=== PATIENT | male | born 1950 | race Caucasian/White ===

== ENCOUNTER → 2023-11-02 12:24 | Outpatient (ROUT) | payer OTHER, MEDICARE, MEDICAID, SELFPAY ==
[2023-11-02 13:18] LABS: Alanine Aminotransferase 11 IU/L (<50); Albumin 3.4 g/dL (3.5-5.0); Albumin Globulin Ratio 1.2 (1.0-2.8); Alkaline Phosphatase 126 U/L (38-126); Aspartate Aminotransferase 30 IU/L (17-59); BUN Creatinine Ratio 36.4 (6-22); Bilirubin Total 2.6 mg/dL (0.2-1.3); Blood Urea Nitrogen 24 mg/dL (9-20); Calcium 9.2 mg/dL (8.4-10.2); Carbon Dioxide 29 mmol/L (22-32); Chloride 100 mmol/L (98-107); Estimated Glomerular Filt Rate > 60 mL/min (>60); Globulin 2.8 g/dL (1.7-4.1); Glucose 85 mg/dL (80-110); HEMOLYSIS < 15 (0-50); Potassium 3.8 mmol/L (3.4-5.1); Sodium 135 mmol/L (137-145); Total Protein 6.2 g/dL (6.3-8.2)
[2023-11-02 13:30] LABS: Digoxin 0.5 ng/mL (0.8-2.0)
== END ==
PROVIDERS: Visit Provider Family Medicine
DX: I50.22 Chronic systolic (congestive) heart failure (principal)
CPT/HCPCS: 80053; 80162

== ENCOUNTER → 2024-06-29 06:21 | Outpatient (ROUT) | payer OTHER, MEDICARE, MEDICAID, SELFPAY ==
[2024-06-29 07:25] LABS: Add Manual Diff / Slide Review NO; Basophils Absolute Auto 100 /uL (0-100); Basophils Percent Auto 1.9 % (0-2); Eosinophils Absolute Auto 100 /uL (0-450); Eosinophils Percent Auto 1.5 % (2-4); Hematocrit 38.4 % (41-53); Hemoglobin 12.6 g/dL (13.5-17.5); Lymphocytes Absolute Auto 500 /uL (1100-4500); Lymphocytes Percent Auto 9.3 % (25-40); Mean Corpuscular Hemoglobin 33.1 PG (26-34); Mean Corpuscular Volume 100.5 fL (80-100); Monocytes Absolute Auto 500 /uL (0-900); Neutrophils Absolute Auto 3700 /uL (1500-7000); Neutrophils Percent Auto 76.3 % (50-75); Platelet Count 159 X10^3/uL (150-400); Red Blood Cell Count 3.82 X10^6/uL (4.5-5.9); White Blood Cell Count 4.8 X10^3/uL (4.5-11.0)
[2024-06-29 07:34] LABS: Alanine Aminotransferase 13 IU/L (<50); Albumin 3.6 g/dL (3.5-5.0); Albumin Globulin Ratio 1.5 (1.0-2.8); Alkaline Phosphatase 99 U/L (38-126); Aspartate Aminotransferase 41 IU/L (17-59); BUN Creatinine Ratio 24.1 (6-22); Blood Urea Nitrogen 21 mg/dL (9-20); Calcium 8.7 mg/dL (8.4-10.2); Carbon Dioxide 27 mmol/L (22-32); Chloride 101 mmol/L (98-107); Estimated Glomerular Filt Rate > 60 mL/min (>60); Globulin 2.4 g/dL (1.7-4.1); Glucose 98 mg/dL (80-110); HEMOLYSIS < 15 (0-50); Potassium 4.2 mmol/L (3.4-5.1); Sodium 134 mmol/L (137-145)
[2024-06-29 08:05] LABS: Thyroid Stimulating Hormone 14.7 uIU/mL (0.47-4.68)
== END ==
PROVIDERS: Visit Provider Nurse Practitioner Family
DX: D64.9 Anemia, unspecified (principal); I50.30 Unspecified diastolic (congestive) heart failure; R60.9 Edema, unspecified; R09.02 Hypoxemia
CPT/HCPCS: 36415; 80053; 84443; 85025

== ENCOUNTER 2024-07-04 09:45 | Emergency (ER) | payer MEDICARE, MEDICAID, SELFPAY ==
[2024-07-04] VITALS (21 sets, daily range): BP systolic 92–116; BP diastolic 61–85; PULSE 80–114; RESP 11–38; TEMP 36.5; O2SAT 87–98; BMI 25.8
--- NOTE | 2024-07-04 10:21 | EKG_ITS ---
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
[2024-07-04 10:29] LABS: Add Manual Diff / Slide Review NO; Basophils Absolute Auto 100 /uL (0-100); Basophils Percent Auto 1.2 % (0-2); Eosinophils Absolute Auto 200 /uL (0-450); Eosinophils Percent Auto 2.8 % (2-4); Hematocrit 41.1 % (41-53); Hemoglobin 13.8 g/dL (13.5-17.5); Lymphocytes Absolute Auto 400 /uL (1100-4500); Mean Corpuscular HGB Conc 33.6 % (30-36); Mean Corpuscular Hemoglobin 33.3 PG (26-34); Mean Corpuscular Volume 98.9 fL (80-100); Monocytes Absolute Auto 600 /uL (0-900); Monocytes Percent Auto 10.1 % (3-14); Neutrophils Absolute Auto 4300 /uL (1500-7000); Neutrophils Percent Auto 77.9 % (50-75); Platelet Count 170 X10^3/uL (150-400); Red Blood Cell Count 4.15 X10^6/uL (4.5-5.9); Red Cell Distribution Width 18.1 % (11.6-14.8); White Blood Cell Count 5.6 X10^3/uL (4.5-11.0)
[2024-07-04 10:55] LABS: Alanine Aminotransferase 14 IU/L (<50); Albumin Globulin Ratio 1.3 (1.0-2.8); Alkaline Phosphatase 115 U/L (38-126); Aspartate Aminotransferase 51 IU/L (17-59); BUN Creatinine Ratio 26.4 (6-22); Bilirubin Total 3.9 mg/dL (0.2-1.3); Blood Urea Nitrogen 24 mg/dL (9-20); Calcium 8.9 mg/dL (8.4-10.2); Carbon Dioxide 24 mmol/L (22-32); Chloride 102 mmol/L (98-107); Estimated Glomerular Filt Rate > 60 mL/min (>60); Glucose 91 mg/dL (80-110); HEMOLYSIS 62 (0-50); Lipase 105 U/L (23-300); Potassium 4.5 mmol/L (3.4-5.1); Sodium 135 mmol/L (137-145)
--- NOTE | 2024-07-04 11:26 | DI.CT.S_ITS ---
PROCEDURE: CT ABDOMEN PELVIS W CON INDICATIONS: abd pain TECHNIQUE: After the administration of intravenous contrast, axial sections acquired from the lung bases to the pubic symphysis. Coronal and sagittal reformats were performed. For radiation dose reduction, the following was used: automated exposure control, adjustment of mA and/or kV according to patient size. COMPARISON: None. FINDINGS: Image quality: Suboptimal due to motion artifact. Lower Chest: Marked cardiomegaly. Small pleural effusions. Reflux of contrast into the IVC. ABDOMEN: Liver: No solid mass. Gallbladder: No radiopaque stones. Decompressed with a thickened wall. Biliary ducts: No biliary dilation. Pancreas: No ductal dilation. Spleen: Size is within normal limits. Adrenal Glands: No adrenal nodules. Kidneys and Ureters: No hydronephrosis. No solid mass. No complex renal cystic lesion which requires follow up. Stomach and Bowel: Normal colonic caliber, without significant wall thickening. Peritoneum: No abnormal intraperitoneal fluid. No free air. Large volume ascites. Ventral Wall: No significant ventral hernia. Anasarca. Abdominal Nodes: No retroperitoneal or mesenteric adenopathy by size criteria. Vessels: Aorta and inferior vena cava are normal in size. PELVIS: Pelvic Organs: Unremarkable. Bladder: No bladder wall thickening, accounting for underdistention. Pelvic Nodes: No enlarged lymph nodes. Miscellaneous: No inguinal hernias are seen. Bones: No aggressive osseous abnormality. IMPRESSION: Large volume ascites. This is probably third-spacing fluids as anasarca and small pleural effusions are present. Marked cardiomegaly. Dictated by: Andrew Mitchell M.D. on 07/04/2024 at 12:44 Approved by: Andrew Mitchell M.D. on 07/04/2024 at 12:47
--- NOTE | 2024-07-04 11:26 | ED.ABDPAIN ---
HPI - Abdominal Pain General Chief Complaint: Abdominal Pain Stated Complaint: abd pain Time Seen by Provider: 07/04/24 11:26 Source: patient and EMS Mode of arrival: EMS History of Present Illness HPI narrative: 73-year-old male current resident at [facility] complains of weeks duration generalized abdominal pain, hard stools in the past, does not believe he has any known cirrhosis or fluid in the belly, no drainage procedures of the belly, increasing distention over the last couple of days noted, passing gas, last bowel movement couple of days ago. Increasing abdominal pain. No fevers or chills. No fall or injury. He denies pain with urination or frequency of urination, did not have difficulty initiating urination, strong stream. He denies flank pain. He denies cough shortness of breath. He has had no nausea or vomiting, does not report any black or red stools. Related Data Allergies Allergy/AdvReac Type Severity Reaction Status Date / Time No Known Drug Allergies Allergy Verified 07/04/24 09:57 Review of Systems Review of Systems Narrative: see HPI Patient History Social History Smoking Status: Former smoker Smoking Status: Former smoker alcohol intake frequency: other Substance Use Type: does not use Exam Narrative Exam Narrative: GENERAL: Well-developed patient, in mild distress. HEAD: Atraumatic. Normocephalic. EYES: Pupils equal round and reactive. Extraocular motions intact. No scleral icterus. No injection or drainage. ENT: Nose without bleeding, purulent drainage. Throat without erythema, tonsillar hypertrophy or exudate. Airway patent. NECK: Trachea midline. Non tender CARDIOVASCULAR: Regular rate and rhythm without murmurs, gallops, or rubs. RESPIRATORY: Clear to auscultation. Breath sounds equal bilaterally. No wheezes, rales, or rhonchi. GASTROINTESTINAL: Abdomen distended, with umbilical reducible hernia that is not particularly tender when pushed back down, is quickly recurrent, no specific central tympany, suspected ascites. No caput medusae like changes to the skin. No obvious inguinal hernia. Bowel tones diminished, but no rushes or tinkles. No guarding or rebound EXTREMITIES: No edema or joint tenderness. BACK: Nontender without deformity or crepitance. No flank tenderness. NEURO: AOx3. Grossly nonfocal motor exam SKIN: No rash or erythema of visible areas Initial Vital Signs Initial Vital Signs: Vital Signs Temperature 97.7 F 07/04/24 09:57 Pulse Rate 110 H 07/04/24 09:57 Respiratory Rate 20 07/04/24 09:57 Blood Pressure 107/79 07/04/24 09:57 Pulse Oximetry 93 07/04/24 09:57 Oxygen Delivery Method Room Air 07/04/24 09:57 Course Orders Ordered: ED Orders 07/04/24 11:26 CT abdomen pelvis w con Stat 07/04/24 13:20 Urine Culture Stat Urine Microscopic Stat 07/04/24 14:52 US paracentesis Stat 07/04/24 16:06 Body Fluid Culture Stat Cell Count w Diff Body Fluid Stat [facility] Albumin, Body Fluid Stat Discontinued Medications Albumin Human (Albuminar) 25 gm in 100 mls @ 60 mls/hr IV NOW ONE Stop: 07/04/24 16:30 Last Infusion: 07/04/24 17:11 Dose: Infused Documented By: Admin: 07/04/24 15:29 Dose: 60 mls/hr Documented By: YOAN Ondansetron HCl (Ondansetron 4 Mg/2 Ml Inj) 4 mg IV NOW PRN PRN Reason: Nausea And Vomiting Vital Signs Vital signs: Vital Signs - 8 hr 07/04/24 12:30 07/04/24 12:30 07/04/24 13:00 Pulse Rate 89 Respiratory Rate 12 Blood Pressure 105/70 110/77 Pulse Oximetry 96 07/04/24 13:00 07/04/24 13:30 07/04/24 13:30 Pulse Rate 102 H 110 H Respiratory Rate 33 H 31 H Blood Pressure 104/78 Pulse Oximetry 94 98 07/04/24 14:00 07/04/24 14:00 07/04/24 14:30 Pulse Rate 96 H Respiratory Rate 28 H Blood Pressure 105/78 116/72 Pulse Oximetry 92 07/04/24 14:30 07/04/24 15:00 07/04/24 15:00 Pulse Rate 82 107 H Respiratory Rate 16 33 H Blood Pressure 106/73 Pulse Oximetry 95 94 07/04/24 15:30 07/04/24 15:30 07/04/24 16:00 Pulse Rate 104 H 92 H Respiratory Rate 29 H 27 H Blood Pressure 116/75 Pulse Oximetry 87 L 07/04/24 16:00 07/04/24 16:30 07/04/24 17:00 Pulse Rate Respiratory Rate Blood Pressure 100/70 106/78 106/75 Pulse Oximetry 07/04/24 17:00 07/04/24 17:30 07/04/24 17:30 Pulse Rate 100 H 83 Respiratory Rate 38 H 15 Blood Pressure 108/62 Pulse Oximetry 96 95 07/04/24 18:00 07/04/24 18:00 07/04/24 18:32 Pulse Rate 80 Respiratory Rate 19 Blood Pressure 93/61 93/69 Pulse Oximetry 94 07/04/24 18:32 07/04/24 19:00 07/04/24 19:00 Pulse Rate 105 H 107 H Respiratory Rate 22 30 H Blood Pressure 111/73 Pulse Oximetry 93 91 MDM - Abdominal Pain Lab Data Attestation: I reviewed the patient's lab results. 07/04/24 10:10 07/04/24 10:10 Labs: Lab Results 07/04/24 07/04/24 07/04/24 Range/Units 10:10 13:20 16:06 WBC 5.6 (4.5-11.0) X10^3/uL RBC 4.15 L (4.5-5.9) X10^6/uL Hgb 13.8 (13.5-17.5) g/dL Hct 41.1 (41-53) % MCV 98.9 (80-100) fL MCH 33.3 (26-34) PG MCHC 33.6 (30-36) % RDW 18.1 H (11.6-14.8) % Plt Count 170 (150-400) X10^3/uL Neut % (Auto) 77.9 H (50-75) % Lymph % (Auto) 8.0 L (25-40) % [place] % (Auto) 10.1 (3-14) % Eos % (Auto) 2.8 (2-4) % Baso % (Auto) 1.2 (0-2) % Neut # (Auto) 4300 (7643-5445) /uL Lymph # (Auto) 400 L (6645-4545) /uL [place] # (Auto) 600 (0-900) /uL Eos # (Auto) 200 (0-450) /uL Baso # (Auto) 100 (0-100) /uL PT 15.5 H (9.4-12.5) SECONDS INR 1.3 (0.9-1.3) Sodium 135 L (137-145) mmol/L Potassium 4.5 (3.4-5.1) mmol/L Chloride 102 (98-107) mmol/L Carbon Dioxide 24 (22-32) mmol/L BUN 24 H (9-20) mg/dL Creatinine 0.91 (0.66-1.25) mg/dL Estimated GFR > 60 (>60) mL/min BUN/Creatinine Ratio 26.4 H (6-22) Glucose 91 (80-110) mg/dL Calcium 8.9 (8.4-10.2) mg/dL Total Bilirubin 3.9 H (0.2-1.3) mg/dL AST 51 (17-59) IU/L ALT 14 (<50) IU/L Alkaline Phosphatase 115 (38-126) U/L Total Protein 7.0 (6.3-8.2) g/dL Albumin 4.0 (3.5-5.0) g/dL Globulin 3.0 (1.7-4.1) g/dL Albumin/Globulin Ratio 1.3 (1.0-2.8) Lipase 105 (23-300) U/L Urine RBC None seen (0-5/HPF) Urine WBC 1-5/hpf (0-5/HPF) Ur Squamous Epith Cells None seen (0-5/HPF) Urine Bacteria Many (>30) H (None) Ur Culture Indicated? Cult not indicated Vol Urine Centrifuged 10ml (spun) Fluid Color Yellow Fluid Appearance Hazy Fluid RBC 654 /uL Fld Tot Nucleated Cell 235 /uL Fluid Neutrophils % 11 % Fluid Lymphocytes % 26 % Fluid Basophils % 1 % Fluid Meso/Macro/Barrow % 62 % Body Fluid Clot No clots present Point of care testing: Urine Dip Bedside Urine Glucose Negative Bedside Urine Bilirubin - Negative Bedside Urine Ketone - Negative Urine Specific [place] 1.025 Bedside Urine Occult Blood ++ Bedside Urine pH 6.0 Bedside Urine Protein - Negative Bedside Urine Urobilinogen - Negative Bedside Urine Nitrite - Negative Bedside Urine Leukocytes - Negative Esterase ECG Data Attestation: I personally reviewed and interpreted this ECG as follows: Interpretation: Atrial fibrillation with ventricular rate 99, no obvious ST segment elevation or depression. Low voltage noted. QRS 112, QTC 469. MDM Narrative Medical decision making narrative: 73-year-old male resident of nearby assisted care facility with abdominal pain for a number of weeks, history of constipation, increasing abdominal distention, quite tense on exam, without obvious fluid wave, it has not aware of any previous diagnosis of cirrhosis/ascites, no prior paracentesis procedures, has umbilical hernia that is reducible not tender when reduced but is persistent/recurrent. Labs Show adequate renal function. CT abdomen and pelvis imaging with IV contrast requested. CT abdomen and pelvis shows large volume ascites. No acute changes. No mention of cirrhosis liver parenchyma. We will requests tap, apparently this is a new diagnosis. Discussed with Interventional Radiology, they can do large volume tap. We will follow with albumin infusion. Paracentesis fluid requested for studies: Cell count, gram stain, culture, albumin, cytology, AFB and culture, fungal culture. Patient had 4600 cc drained by Interventional Radiology peritoneal fluid, nonbloody nonpurulent appearing. Studies show white blood cell count 235 with 11% neutrophils, 4 ANC 26. Not consistent with SBP. Red blood cells 654 noted. Fluid albumin requested and pending. Peritoneal fluid Gram stain, bacterial culture, fungal culture, AFB culture, cytology studies are pending. IV albumin 25 g infusion post large volume paracentesis infusing. We will contact hospitalist regarding admission. Patient reported that he did not want to be admitted, he has atrial fibrillation known with some persisting tachycardia 110-120 range, is aware of this. We discussed the fluid chest that can happen after large volume paracentesis, electrolyte abnormalities, kidney function issues. Advised he be admitted. He persisted in his desire to be discharged, against medical advice. He expressed understanding of risks refusal that can include morbidity, fall, injury, loss for the last now, even . He persisted in his wish to be discharged against medical advice, advised to follow up with his provider through [facility] next door. He was informed he could return at any time. Critical Care Time Critical Care Time Critical Care Time: Yes Total Critical Care Time: 31 Attestation: The high probability of a clinically significant, sudden or life threatening deterioration of the [gastrointestinal, genitourinary, abdominopelvic] system(s) required my full and direct attention, intervention and personal management. The aggregate critical care time was [31] minutes. This time is in addition to time spent performing reported procedures but includes the following: [x] Data Review and interpretation [x] Patient assessment and monitoring of vital signs [x] Documentation [x Medication orders and management Discharge Plan Departure Patient Disposition: Left Against Medical Advice Clinical Impression: Abdominal pain, Ascites, Left against medical advice, Atrial fibrillation with RVR Activity Restrictions/Additional Instructions: You had abdominal distention over a number of weeks, increased since yesterday, with umbilical hernia that was easy to push back, did not seem to be tender, concern for possible ascites fluid, though you reported you had never had ascites fluid drained from your belly before. CT abdomen and pelvis imaging did not show any cirrhosis of the liver, but did show large volume of ascites fluid in the abdominopelvic cavity. You gave consent for large volume paracentesis, drainage of 4600-mL nonbloody specimen, which was performed with ultrasound guidance by the interventional radiologist on-call. Infusion of IV albumin was done after the large volume paracentesis to help prevent too much fluid shifting. Postprocedure you felt better, weaned off of oxygen. Studies did not suggest infection. Culture pending at this time, as well as cytology to look for cancers reasons for fluid in the belly. Atrial fibrillation known, with rapid ventricular response rate. You were advised to be admitted for further observation and to repeat labs in the morning to check your electrolytes and renal function after such a large fluid changes in shifts, as well as persisting fast heart rate due to your atrial fibrillation. You did not want to follow this advice in elected to leave now against medical advice. You were informed of the risks of such decision that result in missed infection, electrolyte disturbance, kidney failure changes, dizziness, falls, injury, even . You left the emergency department against medical advice. You are advised to seek care with your regular provider through [facility], contact them tomorrow morning. You are welcome and encouraged to return to this emergency department if he should feel worse. Continue taking your chronic medications for now. Stand Alone Forms: Patient Portal/API, Against Medical Advice
[2024-07-04 14:43] LABS: Bacteria Urine Many (>30); Culture Indicated Urine Cult Not Indicated; RBC Urine None Seen (0-5/HPF); Squamous Epithelial Cell Urine None Seen (0-5/HPF); Urine Volume 10mL (spun); WBC Urine 1-5/HPF (0-5/HPF)
--- NOTE | 2024-07-04 14:50 | PATH_ITS ---
Note [facility] Accession Number: [id number] TESTS RESULT FLAG UNITS REF RANGE LAB Clinician Provided Cytology Information No. of containers..01 Other (Miscellaneous) Source: ASCITES FLUID DIAGNOSIS: ASCITES FLUID NEGATIVE FOR MALIGNANT CELLS. THIS INTERPRETATION INCLUDES EVALUATION OF A CELL BLOCK. Pathologist ICD10: R18.8 Signed out by: Flavio Kerr MD, PhD, Pathologist NPI- [id number] Performed by: Jasiel Barron, Professor Of Physics ([facility]) Gross description: 70 CC, YELLOW, CLOUDY RECEIVED: FRESH IN BLUE CAP CONTAINER.VO /VDU 07/05/2024 0651 Local FLAG LEGEND: L-Low Normal,H-High Normal,LL-Alert Low,HH-Alert High <-Panic Low,>-Panic High,A-Abnormal,AA-Critical Abnormal Performed at: 01 =Z [facility] [address], [place] [address] Agus Rubio MD, Performed at: 01 [facility] [address], [place], [place] [id number] MD Agus Rubio MD Phone: [phone]
--- NOTE | 2024-07-04 14:52 | DI.US.S_ITS ---
PROCEDURE: US PARACENTESIS INDICATIONS: ascites TECHNIQUE: The indications, alternatives, benefits, risks, and complications of the procedure were explained to the patient. Written informed consent was obtained and placed in the chart. The abdomen and pelvis were examined sonographically, and an appropriate site was chosen for paracentesis. The skin was prepared and draped in the usual sterile fashion, and 1% lidocaine was infiltrated from the skin down through the peritoneal surface. A 19-gauge catheter-covered needle was then introduced into the peritoneal space, the catheter was advanced and the needle was withdrawn, and thereafter peritoneal fluid was withdrawn. The catheter was then removed and a dressing was applied. The fluid was discarded if the clinician did not order diagnostic testing of the fluid. COMPARISON: [facility], CT, CT ABDOMEN PELVIS W CON, 07/04/2024, 11:35. FINDINGS: Access site: Right lower quadrant Needle: One-Step centesis catheter with introducer needle. Fluid volume and description: 4520, clear straw-colored Fluid sent for diagnostic testing: Yes Medications: 1% lidocaine for local anaesthesia. Complications: None. IMPRESSION: Successful therapeutic and diagnostic ultrasound-guided paracentesis. Dictated by: Pee Echevarria M.D. on 07/04/2024 at 17:42 Approved by: Pee Echevarria M.D. on 07/04/2024 at 17:44
[2024-07-04 14:57] LABS: INR 1.3 (0.9-1.3); Prothrombin Time 15.5 SECONDS (9.4-12.5)
[2024-07-04] MEDS: ALBUMIN HUMAN 25 GM/100 ML VIAL IV (15:29)
--- NOTE | 2024-07-04 16:01 | PC.NURSE ---
radiologist in room with patient and US tech
[2024-07-04 16:50] LABS: Body Fluid Tot Nucleated Cells 235 /uL
[2024-07-04 16:53] LABS: Body Fluid Red Blood Cells 654 /uL
[2024-07-04 16:54] LABS: Body Fluid Appearance HAZY; Body Fluid Clotted? NO CLOTS PRESENT; Body Fluid Color YELLOW
[2024-07-04 17:13] LABS: Lymphocytes Body Fluid 26 %; Neutrophils Body Fluid 11 %
[2024-07-04 17:14] LABS: Basophils Body Fluid 1 %; MESO/MACRO/MONO Body Fluid 62 %
--- NOTE | 2024-07-04 19:39 | PC.NURSE ---
Call placed to [facility] to ask for assistance in transporting patient back home. Staff reported they would call back. Patient did not want to wait. I just live right across the street, I feel strong enough to get home Patient visualized walking into corner building across the street from ER.
[2024-07-05 05:13] LABS: Labcorp Albumin, Body Fluid 2.1 g/dL (Not Estab.)
== END 2024-07-04 19:41 | disposition left against medical advice (07) ==
PROVIDERS: Emergency Provider Emergency Medicine
DX: I48.20 Chronic atrial fibrillation, unspecified (principal); R10.84 Generalized abdominal pain; R18.8 Other ascites
CPT/HCPCS: 36415; 49083; 74177; 80053; 81003; 81015; 82040; 83690; 85025; 85610; 87070; 87075; 87077; 87086; 87102; 87116; 87186; 87205; 87206; 89051; 93005; 96365; 96366; 99285; P9041; Q9967

== ENCOUNTER 2024-07-07 09:07 | Emergency (ER) | payer OTHER, MEDICARE, MEDICAID, SELFPAY ==
[2024-07-07] VITALS (15 sets, daily range): BP systolic 80–110; BP diastolic 62–82; PULSE 83–121; RESP 15–38; TEMP 36.4; O2SAT 86–100; BMI 25.8
--- NOTE | 2024-07-07 09:19 | DI.RAD.S_ITS ---
PROCEDURE: XR CHEST 1V INDICATIONS: Shortness of breath TECHNIQUE: One view of the chest was acquired. COMPARISON: None. FINDINGS: Overlying EKG lead slightly limit evaluation. Surgical changes and devices: None. Lungs and pleura: Lungs are clear. No pleural effusions or pneumothorax. Mediastinum: Mediastinal contours appear normal. Heart size is enlarged. Mild diffuse interstitial prominence. Bones and chest wall: No suspicious bony lesions. Overlying soft tissues appear unremarkable. IMPRESSION: Cardiomegaly with mild pulmonary edema which may reflect congestive heart failure. Dictated by: Nita Romo M.D. on 07/07/2024 at 9:50 Approved by: Nita Romo M.D. on 07/07/2024 at 9:51
--- NOTE | 2024-07-07 09:28 | EKG_ITS ---
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
[2024-07-07 09:33] LABS: Add Manual Diff / Slide Review NO; Basophils Absolute Auto 100 /uL (0-100); Basophils Percent Auto 2.1 % (0-2); Eosinophils Absolute Auto 100 /uL (0-450); Eosinophils Percent Auto 2.2 % (2-4); Hematocrit 41.2 % (41-53); Hemoglobin 13.7 g/dL (13.5-17.5); Lymphocytes Absolute Auto 500 /uL (1100-4500); Lymphocytes Percent Auto 9.6 % (25-40); Mean Corpuscular HGB Conc 33.2 % (30-36); Mean Corpuscular Hemoglobin 32.9 PG (26-34); Mean Corpuscular Volume 99.3 fL (80-100); Monocytes Absolute Auto 300 /uL (0-900); Monocytes Percent Auto 6.1 % (3-14); Neutrophils Absolute Auto 4500 /uL (1500-7000); Platelet Count 178 X10^3/uL (150-400); Red Blood Cell Count 4.15 X10^6/uL (4.5-5.9); Red Cell Distribution Width 18.4 % (11.6-14.8); White Blood Cell Count 5.6 X10^3/uL (4.5-11.0)
--- NOTE | 2024-07-07 09:34 | ED.SOB ---
HPI - SOB/Dyspnea General Chief Complaint: Shortness of Breath/Dyspnea Stated Complaint: SOB- here 2 days ago Time Seen by Provider: 07/07/24 09:33 Source: patient Mode of arrival: Ambulatory Limitations: no limitations History of Present Illness HPI Narrative: Patient is a 73-year-old male who resides at [facility] was seen and evaluated here July 04 for increasing abdominal pain. He had a first-time paracentesis 4600 cc drained by Interventional Radiology nonbloody SBP ruled out he also received 25 g of albumin following large volume paracentesis was going to admit patient however patient left against medical advice. He does have a history of atrial fibrillation he has ongoing tachycardia, he has no known history of atrial fibrillation. Urine culture came back as Gram-negative bacilli today. He has not had any fever or chills. He reports he is having ongoing shortness of breath. But no fever chills or cough. Abdomen remains soft. He reports that hem has no alcohol history he reports remote history of hepatitis when he was his 20s. He formerly lived in [place] and has only been at [facility] for the last 10 days Related Data Previous Rx's Medication Instructions Recorded cefdinir 300 mg capsule 300 mg PO BID 10 days #20 caps 07/05/24 apixaban 5 mg (74 tabs) tablets in See Rx Instructions PO .COMPLEX 07/07/24 a dose pack (Eliquis DVT-PE Treat #74 ea 30D Start) cefdinir 300 mg capsule 300 mg PO Q12H #14 caps 07/07/24 Allergies Allergy/AdvReac Type Severity Reaction Status Date / Time No Known Drug Allergies Allergy Verified 07/07/24 09:21 Patient History Social History Smoking Status: Former smoker Smoking Status: Former smoker alcohol intake frequency: other Substance Use Type: does not use Exam Initial Vital Signs Initial Vital Signs: Vital Signs Temperature 97.6 F 07/07/24 09:08 Pulse Rate 117 H 07/07/24 09:08 Respiratory Rate 30 H 07/07/24 09:08 Blood Pressure 107/82 07/07/24 09:08 Pulse Oximetry 98 07/07/24 09:08 Oxygen Delivery Method Room Air 07/07/24 09:08 GENERAL: Alert 73-year-old and in no acute distress. HEENT: Head atraumatic,EOMI, pupils reactive, face symmetric, moist mucous membranes CARDIOVASCULAR: Irregularly irregular RESPIRATORY: Breath sounds equal bilaterally, no wheezes rales or rhonchi. ABDOMEN: Soft, fluid but no distention soft EXTREMITIES: Normal range of motion, no clubbing or edema. Neurovascularly intact NEUROLOGICAL: Alert and oriented x4.Normal gait and speech. Cranial nerves II through XII grossly intact. SKIN: Warm, dry, no laceration, no petechiae, no rashes or lesions. Course Orders Ordered: ED Orders 07/07/24 09:19 XR chest 1V Stat EKG-12 Lead Stat Measure peak expiratory flow ONCE RT Consult Eval and Treat NOW 07/07/24 09:24 Complete Blood Count AUTO DIFF Stat Comprehensive Metabolic Panel Stat Lactate (Lactic Acid) Stat Lipase Stat NT-proBNP (BNP-Adult 18+) Stat Prothrombin Time INR Stat Troponin I Stat 07/07/24 09:26 Ammonia (NH3) Stat 07/07/24 09:46 CT angio chest PE protocol Stat 07/07/24 10:25 EC echo limited Stat Discontinued Medications Apixaban (Apixaban 5 Mg Tablet) 10 mg PO NOW ONE Stop: 07/07/24 11:20 Last Admin: 07/07/24 11:40 Dose: 10 mg Documented By: MILTON Furosemide (Furosemide 40 Mg/4 Ml Vial) 40 mg IV NOW ONE Stop: 07/07/24 10:10 Last Admin: 07/07/24 10:31 Dose: 40 mg Documented By: VARUN Ceftriaxone Sodium 1,000 mg/ (Sodium Chloride) 100 mls @ 200 mls/hr IV NOW ONE Stop: 07/07/24 10:09 Last Infusion: 07/07/24 11:13 Dose: Infused Documented By: Admin: 07/07/24 10:32 Dose: 200 mls/hr Documented By: VARUN Vital Signs Vital signs: Vital Signs - 8 hr 07/07/24 09:08 07/07/24 09:16 07/07/24 09:18 Temperature 97.6 F Pulse Rate 117 H 120 H Respiratory Rate 30 H Blood Pressure 107/82 107/82 Pulse Oximetry 98 98 Oxygen Delivery Method Room Air Oxygen Flow Rate 07/07/24 09:18 07/07/24 09:30 07/07/24 09:30 Temperature Pulse Rate 121 H 112 H Respiratory Rate 33 H 28 H Blood Pressure 101/78 Pulse Oximetry 99 98 Oxygen Delivery Method Oxygen Flow Rate 07/07/24 10:01 07/07/24 10:02 07/07/24 10:02 Temperature Pulse Rate 83 107 H Respiratory Rate 29 H 23 Blood Pressure 98/75 Pulse Oximetry 87 L 96 Oxygen Delivery Method Oxygen Flow Rate 07/07/24 10:15 07/07/24 10:15 07/07/24 10:25 Temperature Pulse Rate 99 H Respiratory Rate 38 H Blood Pressure 97/80 Pulse Oximetry 86 L Oxygen Delivery Method Room Air Oxygen Flow Rate 07/07/24 10:26 07/07/24 10:30 07/07/24 10:30 Temperature Pulse Rate 90 Respiratory Rate Blood Pressure 101/77 Pulse Oximetry 98 Oxygen Delivery Method Nasal Cannula Nasal Cannula Oxygen Flow Rate 2 2 07/07/24 10:45 07/07/24 10:45 07/07/24 10:47 Temperature Pulse Rate 100 H Respiratory Rate 22 Blood Pressure 80/62 L 81/66 L Pulse Oximetry 95 Oxygen Delivery Method Oxygen Flow Rate 07/07/24 10:47 07/07/24 11:00 07/07/24 11:01 Temperature Pulse Rate 99 H 108 H 111 H Respiratory Rate 34 H 23 25 H Blood Pressure Pulse Oximetry 96 100 100 Oxygen Delivery Method Oxygen Flow Rate 07/07/24 11:01 07/07/24 11:15 07/07/24 11:15 Temperature Pulse Rate 111 H Respiratory Rate 15 Blood Pressure 110/77 87/67 L Pulse Oximetry 97 Oxygen Delivery Method Oxygen Flow Rate 07/07/24 11:21 07/07/24 11:21 Temperature Pulse Rate 110 H Respiratory Rate 20 Blood Pressure 83/67 L Pulse Oximetry 100 Oxygen Delivery Method Oxygen Flow Rate MDM - SOB/Dyspnea Lab Data 07/07/24 09:24 07/07/24 09:24 Labs: Lab Results 07/07/24 07/07/24 Range/Units 09:24 09:26 WBC 5.6 (4.5-11.0) X10^3/uL RBC 4.15 L (4.5-5.9) X10^6/uL Hgb 13.7 (13.5-17.5) g/dL Hct 41.2 (41-53) % MCV 99.3 (80-100) fL MCH 32.9 (26-34) PG MCHC 33.2 (30-36) % RDW 18.4 H (11.6-14.8) % Plt Count 178 (150-400) X10^3/uL Neut % (Auto) 80.0 H (50-75) % Lymph % (Auto) 9.6 L (25-40) % [place] % (Auto) 6.1 (3-14) % Eos % (Auto) 2.2 (2-4) % Baso % (Auto) 2.1 H (0-2) % Neut # (Auto) 4500 (3505-8990) /uL Lymph # (Auto) 500 L (0970-2045) /uL [place] # (Auto) 300 (0-900) /uL Eos # (Auto) 100 (0-450) /uL Baso # (Auto) 100 (0-100) /uL PT 16.1 H (9.4-12.5) SECONDS INR 1.4 H (0.9-1.3) Sodium 131 L (137-145) mmol/L Potassium 4.4 (3.4-5.1) mmol/L Chloride 98 (98-107) mmol/L Carbon Dioxide 24 (22-32) mmol/L BUN 21 H (9-20) mg/dL Creatinine 0.84 (0.66-1.25) mg/dL Estimated GFR > 60 (>60) mL/min BUN/Creatinine Ratio 25.0 H (6-22) Glucose 109 (80-110) mg/dL Lactate 1.7 (0.7-2.1) mmol/L Calcium 8.5 (8.4-10.2) mg/dL Total Bilirubin 3.1 H (0.2-1.3) mg/dL AST 41 (17-59) IU/L ALT 13 (<50) IU/L Alkaline Phosphatase 107 (38-126) U/L Ammonia < 9 L (9-30) umol/L Troponin I 0.025 (0.01-0.034) ng/mL NT-Pro-B Natriuret Pep 4640 H (<125) pg/mL Total Protein 6.9 (6.3-8.2) g/dL Albumin 3.8 (3.5-5.0) g/dL Globulin 3.1 (1.7-4.1) g/dL Albumin/Globulin Ratio 1.2 (1.0-2.8) Lipase 131 (23-300) U/L Imaging Data Chest x-ray: Radiologist's Impression: PROCEDURE: XR CHEST 1V INDICATIONS: Shortness of breath TECHNIQUE: One view of the chest was acquired. COMPARISON: None. FINDINGS: Overlying EKG lead slightly limit evaluation. Surgical changes and devices: None. Lungs and pleura: Lungs are clear. No pleural effusions or pneumothorax. Mediastinum: Mediastinal contours appear normal. Heart size is enlarged. Mild diffuse interstitial prominence. Bones and chest wall: No suspicious bony lesions. Overlying soft tissues appear unremarkable. IMPRESSION: Cardiomegaly with mild pulmonary edema which may reflect congestive heart failure. Dictated by: Nita Romo M.D. on 07/07/2024 at 9:50 CT scan - chest: Radiologist's Impression: PROCEDURE: CT ANGIO CHEST PE PROTOCOL INDICATIONS: short of breath TECHNIQUE: After the administration of intravenous contrast, 2 mm thick sections acquired from the pulmonary apices to the posterior costophrenic angles. 3-dimensional maximum intensity projection (MIP) coronal and sagittal reformats were then acquired through the thorax. For radiation dose reduction, the following was used: automated exposure control, adjustment of mA and/or kV according to patient size. COMPARISON: None. FINDINGS: Image quality: Severely suboptimal due to motion artifact. Pulmonary arteries: Pulmonary arteries are dilated. There is non opacification of the left lower lobe segmental pulmonary arteries Lower Neck: No enlarged lymph nodes. Thyroid: No thyroid nodules which require sonographic follow up, per consensus guidelines. Axillae: No enlarged lymph nodes. Chest Wall: Unremarkable. Bones: Unremarkable. Lungs and Pleura: Small pleural effusions. No infarct. Smooth interstitial thickening and bronchial thickening Heart: Heart size is markedly enlarged. Left ventricle is larger than the right. No pericardial effusion. Thoracic Vessels: No aortic aneurysm. Mediastinum and Katrina: No enlarged lymph nodes. Esophagus: No wall thickening. No hiatal hernia. Upper Abdomen: Moderate volume ascites. IMPRESSION: Non opacification of the left lower segmental pulmonary arteries. Findings are concerning for pulmonary embolism. No evidence of heart strain or infarct. Moderate pulmonary edema. Marked cardiomegaly with reflux of contrast into the IVC, indicating elevated right heart pressures. Dictated by: Andrew Mitchell M.D. on 07/07/2024 at 10:16 echo: Radiologist's Impression: [place] [facility] : : [address] : : [place] : : [id number] : : Phone: [phone] Echocardiogram Report + + :Name: SAY HERNANDEZ Study Date: 07/07/2024 Height: 70 in : :[facility] ReadingLocation: Weight: 180 lb : : Gender: Male BSA: 2.0 m2 : :: 1950 Age: 73 yrs BP: 101/77 mmHg: :Reason For Study: PULMONARY EMBOLISM, RIGHT HEART STRAIN : :Ordering Physician: JODY, : :SOBIA Performed By: Paige Rivera : :Referring: SOBIA VERA : + + Interpretation Summary 1. The left ventricular contractility is severely compromised. Estimate ejection fraction is approximately 15 to 20% with severe global hypokinesis. No LVH. Unable to comment on diastolic function. 2. The right ventricular contractility is moderate to severely compromised. There is flattening of the interventricular septum suggestive of a pressure and volume overloaded state of the right ventricle. 3. Severe four-chamber cardiac enlargement. 4. Severe tricuspid regurgitation with no coaptation of the tricuspid valve leaflets. Estimated pulmonary systolic artery pressure is 46 mmHg. 5. Severe mitral regurgitation. 6. Mild aortic insufficiency 7. No obvious intracardiac shunts. 8. No obvious intracardiac masses nor thrombi. 9. No hemodynamically significant pericardial effusion. 10. Elevated right-sided filling pressures. Conclusion: Severe biventricular systolic failure with 4 chamber cardiomegaly and severe mitral and tricuspid regurgitation. *Dr. Sobia Vera notified. Procedure: A two-dimensional transthoracic echocardiogram with color flow and Doppler was performed. The study quality was technically adequate. There is no prior echocardiogram noted for this patient. The heart rate ranged between 85-114 bpm during the study. Left Ventricle: The left ventricle is severely dilated. There is normal left ventricular wall thickness. The ejection fraction is estimated to be 15-20%. The interventricular septum is flattened, consistent with a right ventricular pressure/volume condition. Diastolic function could not be accurately assessed due to unobtainable data. Right Ventricle: The right ventricle is severely dilated. Right ventricular systolic function is moderate to severely reduced. Atria: The left atrium is severely dilated. The right atrium is severely dilated. Mitral Valve: The mitral valve leaflets appear mildly thickened, but open well. There is severe mitral regurgitation. Aortic Valve: The aortic valve is trileaflet. The aortic valve is mildly calcified. There is no aortic valve stenosis. There is mild aortic regurgitation. Tricuspid Valve: The tricuspid annulus is dilated. There is malcoaptation of the tricuspid valve leaflets. There is severe tricuspid regurgitation. Great Vessels: The IVC is dilated (diameter is greater than 2.1 cm) and it collapses less than 50% with a sniff. This suggests a high right atrial pressure of 15 mm Hg. Pericardium/ Pleura There is a small pericardial effusion noted. MMode/2D Measurements & Calculations LVIDd: 6.7 cm LA A2 area: 67.7 cm2 LVIDs: 5.7 cm LA A4 area: 53.5 cm2 FS: 14.4 % LA length (vol): 9.3 cm IVSd: 0.83 cm LA vol: 330.8 ml LVPWd: 0.94 cm LA vol index: 165.7 ml/m2 LV prieto. diameter/BSA (cm/m^2): 3.4 LV sys. diameter/BSA (cm/m^2): 2.9 RA long axis: 10.5 cm RVD1 (basal): 6.1 cm RA area: 77.6 cm2 RVD2 (mid): 5.0 cm RA vol: 488.1 ml TAPSE: 1.5 cm RA : 244.6 ml/m2 IVC diam: 5.2 cm Doppler Measurements & Calculations Ao V2 max: 93.3 cm/sec LVOT Max Jarred: 49.6 cm/sec Ao V2 mean: 71.9 cm/sec LV V1 max P.98 mmHg Ao max P.5 mmHg LV V1 VTI: 6.6 cm Ao mean P.2 mmHg sev ratio: 0.47 Ao V2 VTI: 14.2 cm Med Peak E' Jarred: 7.2 cm/sec TR max jarred: 281.0 cm/sec MR ERO: 0.43 cm2 TR max P.6 mmHg MR PISA: 5.6 cm2 MR flow rate: 195.0 cm3/sec MR PISA radius: 0.94 cm Reading Physician: Data Attestation: I personally reviewed and interpreted this ECG as follows: Prior ECG tracings: available for review Interpretation: Atrial fibrillation rate [address] changes similar to previous EKGs she 2 days ago MDM Narrative Medical decision making narrative: Patient 73-year-old male with new onset of ascites CT abdominal scan from the did not show any mass is only large volume ascites at which 0.46 100 cc were removed with 25 g of albumin. He is found have a UTI with Gram-negative bacilli. He is afebrile mildly hypotensive with blood pressure of 101 and tachycardic with atrial fibrillation. Today he is presenting with increasing shortness of breath though he has not in any sort of respiratory distress or hypoxic. Blood work does show WBC 5.6 hemoglobin 13.7 hematocrit 41.2 platelets 170, INR 1.4 sodium 131 potassium 4.4 chloride 98 carbon dioxide 24 BUN 21 creatinine 0.8 glucose 109 bilirubin 3.1 previously 3.9 AST 41 ALT 13 lipase Imaging reviewed: Chest x-ray shows cardiomegaly with mild pulmonary edema may reflect congestive Heart failure CT angio does show probable left lower segmental pulmonary embolism EKGs does show atrial fibrillation no ischemia Patient 73-year-old male who has cirrhosis liver failure with ascites recent paracentesis no evidence of SBP, presenting today with increasing shortness of breath. His blood pressure is soft high 90s to low 100s. Heart rate does seem to be relatively controlled although he has had moments of tachycardia here. He occasionally has dips in his oxygen level requiring oxygen however patient really does not want to wear oxygen. He is given Lasix and Rocephin. His urinalysis from the does show Gram-negative bacilli but he has no evidence of sepsis Echocardiogram ordered with soft blood pressures tachycardia pulmonary embolism, no evidence of right heart strain Discussion with hospitalist patient could come in for CHF exacerbation and diuresis. Suspect that atrial fibrillation is old he is on digoxin and metoprolol he is also on spironolactone and Lasix. However patient is again not agreeable to hospitalization He has not currently on anticoagulation for an unknown reason. However with new pulmonary embolism seems reasonable to start him on Eliquis for pulmonary embolism and atrial fibrillation Patient ambulated around the emergency department with his walker with a pulse oximeter no significant dyspnea no requirement of oxygen. At this point there is probably no reason for him to be hospitalized. He had an ED echocardiogram it does show significant cardiac failure both right and left side. Severe 4 chamber cardiac enlargement, Dr. Cleary cardiology called and gave me results himself. He recommends hospice he has not a candidate for cardiac transplant. Social work has been involved in case has confirmed that patient was previously in hospice but is no longer. Reports that he was improving and did not meet criteria any longer. Patient is made aware of his echocardiogram results. He reports he is aware of his failing heart he says that is why he was on hospice and he has been told previously that there is nothing else to do. He understands the importance of taking his Lasix. He is agreeable for readmission to hospice. Social work has informed Cat about patient and request referral to hospice for re-evaluation. Discharge Plan Departure Patient Disposition: Home Clinical Impression: Pulmonary embolism, Congestive heart failure, Atrial fibrillation, Acute UTI Activity Restrictions/Additional Instructions: *You have been diagnosed with pulmonary embolism, congestive heart failure, UTI atrial fibrillation *What to do: At this time you are being started on anticoagulation, a blood thinner called Eliquis. You will bleed more with this medication. If you should fall and hit your head you need to come to the emergency department *Continue to take medications as directed--> SENT TO [place] Lasix 40 mg twice a day for 3 days then once daily Eliquis 10 mg twice a day for 7 days then 5 mg once a day Cefdinir 300 mg twice a day for 7 days *Follow up with your primary care provider in 2-3 days or call [phone] *Return to ER if you should have increasing chest pain shortness of breath weakness confusion or any new, worsening or concerning symptoms Prescriptions: New Eliquis DVT-PE Treat 30D Start 5 mg (74 tabs) tablets,dose pack See Rx Instructions .ROUTE .COMPLEX Qty: 74 0RF Rx Instructions: orally per package directions cefdinir 300 mg capsule 300 mg PO Q12H Qty: 14 0RF No Action cefdinir 300 mg capsule 300 mg PO BID 10 Days Qty: 20 0RF Stand Alone Forms: Patient Portal/API
[2024-07-07 09:39] LABS: INR 1.4 (0.9-1.3); Prothrombin Time 16.1 SECONDS (9.4-12.5)
[2024-07-07 09:46] LABS: Alanine Aminotransferase 13 IU/L (<50); Albumin 3.8 g/dL (3.5-5.0); Albumin Globulin Ratio 1.2 (1.0-2.8); Alkaline Phosphatase 107 U/L (38-126); Aspartate Aminotransferase 41 IU/L (17-59); Bilirubin Total 3.1 mg/dL (0.2-1.3); Blood Urea Nitrogen 21 mg/dL (9-20); Calcium 8.5 mg/dL (8.4-10.2); Carbon Dioxide 24 mmol/L (22-32); Chloride 98 mmol/L (98-107); Estimated Glomerular Filt Rate > 60 mL/min (>60); Globulin 3.1 g/dL (1.7-4.1); Glucose 109 mg/dL (80-110); HEMOLYSIS 22 (0-50); Potassium 4.4 mmol/L (3.4-5.1); Sodium 131 mmol/L (137-145); Total Protein 6.9 g/dL (6.3-8.2)
--- NOTE | 2024-07-07 09:46 | DI.CT.S_ITS ---
PROCEDURE: CT ANGIO CHEST PE PROTOCOL INDICATIONS: short of breath TECHNIQUE: After the administration of intravenous contrast, 2 mm thick sections acquired from the pulmonary apices to the posterior costophrenic angles. 3-dimensional maximum intensity projection (MIP) coronal and sagittal reformats were then acquired through the thorax. For radiation dose reduction, the following was used: automated exposure control, adjustment of mA and/or kV according to patient size. COMPARISON: None. FINDINGS: Image quality: Severely suboptimal due to motion artifact. Pulmonary arteries: Pulmonary arteries are dilated. There is non opacification of the left lower lobe segmental pulmonary arteries Lower Neck: No enlarged lymph nodes. Thyroid: No thyroid nodules which require sonographic follow up, per consensus guidelines. Axillae: No enlarged lymph nodes. Chest Wall: Unremarkable. Bones: Unremarkable. Lungs and Pleura: Small pleural effusions. No infarct. Smooth interstitial thickening and bronchial thickening Heart: Heart size is markedly enlarged. Left ventricle is larger than the right. No pericardial effusion. Thoracic Vessels: No aortic aneurysm. Mediastinum and Katrina: No enlarged lymph nodes. Esophagus: No wall thickening. No hiatal hernia. Upper Abdomen: Moderate volume ascites. IMPRESSION: Non opacification of the left lower segmental pulmonary arteries. Findings are concerning for pulmonary embolism. No evidence of heart strain or infarct. Moderate pulmonary edema. Marked cardiomegaly with reflux of contrast into the IVC, indicating elevated right heart pressures. Dictated by: Andrew Mitchell M.D. on 07/07/2024 at 10:16 Approved by: Andrew Mitchell M.D. on 07/07/2024 at 10:20
[2024-07-07 09:47] LABS: Lactate (Lactic Acid) 1.7 mmol/L (0.7-2.1)
[2024-07-07 09:49] LABS: Ammonia (NH3) < 9 umol/L (9-30)
--- NOTE | 2024-07-07 09:53 | PC.NURSE ---
Patient seen on thursday, left AMA. Had approx 4500ml drained off his abd. Patient reports increase shortness of breath, increasing abd distention. Patient abd firm, umbilical bulging noted. Resp rate in 30's.
[2024-07-07 10:00] LABS: NT-proBNP (BNP-Adult 18+) 4640 pg/mL (<125); Troponin I 0.025 ng/mL (0.01-0.034)
--- NOTE | 2024-07-07 10:25 | DI.ECHO.S_ITS ---
[facility]+ [facility] : : [address] : : [place] : : [id number] : : Phone: [phone] Echocardiogram Report + + :Name: SAY HERNANDEZ Study Date: 07/07/2024 Height: 70 in : :Hospital ReadingLocation: Weight: 180 lb : : Gender: Male BSA: 2.0 m2 : :: 1950 Age: 73 yrs BP: 101/77 mmHg: :Reason For Study: PULMONARY EMBOLISM, RIGHT HEART STRAIN : :Ordering Physician: JODY, : :SOBIA Performed By: Paige Rivera : :Referring: SOBIA VERA : + + Interpretation Summary 1. The left ventricular contractility is severely compromised. Estimate ejection fraction is approximately 15 to 20% with severe global hypokinesis. No LVH. Unable to comment on diastolic function. 2. The right ventricular contractility is moderate to severely compromised. There is flattening of the interventricular septum suggestive of a pressure and volume overloaded state of the right ventricle. 3. Severe four-chamber cardiac enlargement. 4. Severe tricuspid regurgitation with no coaptation of the tricuspid valve leaflets. Estimated pulmonary systolic artery pressure is 46 mmHg. 5. Severe mitral regurgitation. 6. Mild aortic insufficiency 7. No obvious intracardiac shunts. 8. No obvious intracardiac masses nor thrombi. 9. No hemodynamically significant pericardial effusion. 10. Elevated right-sided filling pressures. Conclusion: Severe biventricular systolic failure with 4 chamber cardiomegaly and severe mitral and tricuspid regurgitation. *Dr. Sobia Vera notified. Procedure: A two-dimensional transthoracic echocardiogram with color flow and Doppler was performed. The study quality was technically adequate. There is no prior echocardiogram noted for this patient. The heart rate ranged between 85-114 bpm during the study. Left Ventricle: The left ventricle is severely dilated. There is normal left ventricular wall thickness. The ejection fraction is estimated to be 15-20%. The interventricular septum is flattened, consistent with a right ventricular pressure/volume condition. Diastolic function could not be accurately assessed due to unobtainable data. Right Ventricle: The right ventricle is severely dilated. Right ventricular systolic function is moderate to severely reduced. Atria: The left atrium is severely dilated. The right atrium is severely dilated. Mitral Valve: The mitral valve leaflets appear mildly thickened, but open well. There is severe mitral regurgitation. Aortic Valve: The aortic valve is trileaflet. The aortic valve is mildly calcified. There is no aortic valve stenosis. There is mild aortic regurgitation. Tricuspid Valve: The tricuspid annulus is dilated. There is malcoaptation of the tricuspid valve leaflets. There is severe tricuspid regurgitation. Great Vessels: The IVC is dilated (diameter is greater than 2.1 cm) and it collapses less than 50% with a sniff. This suggests a high right atrial pressure of 15 mm Hg. Pericardium/ Pleura There is a small pericardial effusion noted. MMode/2D Measurements & Calculations LVIDd: 6.7 cm LA A2 area: 67.7 cm2 LVIDs: 5.7 cm LA A4 area: 53.5 cm2 FS: 14.4 % LA length (vol): 9.3 cm IVSd: 0.83 cm LA vol: 330.8 ml LVPWd: 0.94 cm LA vol index: 165.7 ml/m2 LV prieto. diameter/BSA (cm/m^2): 3.4 LV sys. diameter/BSA (cm/m^2): 2.9 RA long axis: 10.5 cm RVD1 (basal): 6.1 cm RA area: 77.6 cm2 RVD2 (mid): 5.0 cm RA vol: 488.1 ml TAPSE: 1.5 cm RA : 244.6 ml/m2 IVC diam: 5.2 cm Doppler Measurements & Calculations Ao V2 max: 93.3 cm/sec LVOT Max Jarred: 49.6 cm/sec Ao V2 mean: 71.9 cm/sec LV V1 max P.98 mmHg Ao max P.5 mmHg LV V1 VTI: 6.6 cm Ao mean P.2 mmHg sev ratio: 0.47 Ao V2 VTI: 14.2 cm Med Peak E' Jarred: 7.2 cm/sec TR max jarred: 281.0 cm/sec MR ERO: 0.43 cm2 TR max P.6 mmHg MR PISA: 5.6 cm2 MR flow rate: 195.0 cm3/sec MR PISA radius: 0.94 cm Reading Physician:
[2024-07-07 10:27] LABS: Lipase 131 U/L (23-300)
[2024-07-07] MEDS: FUROSEMIDE 40 MG/4 ML VIAL IV (10:31)
[2024-07-07] MEDS: cefTRIAXone 1,000 MG in SODIUM CHLORIDE 0.9% 100 ML 200 MG IV (10:32)
[2024-07-07] MEDS: APIXABAN 5 MG TABLET 10 MG PO (11:40)
--- NOTE | 2024-07-07 12:54 | CM.SWNOTE ---
ED FINAL CANOE INSPECTOR follow up Note ED provider Dr. Cruz asks FINAL CANOE INSPECTOR to identify if patient is currently on hospice as he is in need of it due to worsening condition. This FINAL CANOE INSPECTOR calls [facility] and it is reported that patient was discharged from Hospice in January 2024, FINAL CANOE INSPECTOR explains ED provider's recommendation for hospice and recent presentation to ED. [facility] staff state they will call patient's residence at [facility] and coordinate new hospice referral. Jazzy Briceno, PIPE MAKER
== END 2024-07-07 12:10 | disposition home or self-care (01) ==
PROVIDERS: Emergency Provider Emergency Medicine
DX: I26.99 Other pulmonary embolism without acute cor pulmonale (principal); I48.20 Chronic atrial fibrillation, unspecified; I50.9 Heart failure, unspecified; N39.0 Urinary tract infection, site not specified; K74.60 Unspecified cirrhosis of liver; I51.7 Cardiomegaly; R00.0 Tachycardia, unspecified; R06.02 Shortness of breath
CPT/HCPCS: 36415; 71045; 71275; 80053; 82140; 83605; 83690; 83880; 84484; 85025; 85610; 93005; 93307; 96365; 96375; 99285; J0696; J1940; Q9967

== ENCOUNTER 2024-07-30 19:27 | Emergency (ER) | payer MEDICARE, MEDICAID, OTHER, SELFPAY ==
[2024-07-30] VITALS (30 sets, daily range): BP systolic 47–127; BP diastolic 24–94; PULSE 0–176; RESP 21–33; TEMP 34.9–36.3; O2SAT 59–100
--- NOTE | 2024-07-30 19:29 | DI.CT.S_ITS ---
PROCEDURE: CT HEAD/BRAIN WO CON INDICATIONS: Acute confusion TECHNIQUE: Noncontrast 4.5 mm thick angled axial sections acquired from the foramen magnum to the vertex, with coronal and sagittal reformats. For radiation dose reduction, the following was used: automated exposure control, adjustment of mA and/or kV according to patient size. COMPARISON: None. FINDINGS: Image quality: Diagnostic. Patient motion is noted. CSF spaces: Basal cisterns are patent. No extra-axial fluid collections. The ventricles are symmetric in size and shape. Brain: No intracranial bleeds or masses. There is cerebral volume loss for age, with resultant ventricular and sulcal prominence. There are periventricular and deep white matter chronic small vessel ischemic changes. There is intracranial internal carotid artery atherosclerosis. Skull and face: Calvarium and visualized facial bones appear intact, without suspicious lesions. Sinuses: Visualized sinuses and mastoids are clear. IMPRESSION: 1. No acute intracranial pathology. 2. Age related volume loss and extensive white matter chronic small vessel ischemic changes. Dictated by: Walt Cleary M.D. on 07/30/2024 at 20:36 Approved by: Walt Cleary M.D. on 07/30/2024 at 20:37
--- NOTE | 2024-07-30 19:29 | DI.CT.S_ITS ---
PROCEDURE: CT ABDOMEN PELVIS W CON INDICATIONS: Distended abdomen TECHNIQUE: After the administration of intravenous contrast, axial sections acquired from the lung bases to the pubic symphysis. Coronal and sagittal reformats were performed. For radiation dose reduction, the following was used: automated exposure control, adjustment of mA and/or kV according to patient size. COMPARISON: [facility], CT, CT ABDOMEN PELVIS W CON, 07/04/2024, 11:35. FINDINGS: Image quality: Diagnostic. Lower Chest: Small bilateral pleural effusion and bibasilar dependent atelectasis is seen. Heart size is enlarged, no pericardial effusion. ABDOMEN: Liver: No solid mass. Lobulated liver contour is noted. Gallbladder: No radiopaque gallstones or wall thickening. Biliary ducts: No biliary dilation. Pancreas: No ductal dilation. Spleen: Size is within normal limits. Adrenal Glands: No adrenal nodules. Kidneys and Ureters: No hydronephrosis. No solid mass. No complex renal cystic lesion which requires follow up. Stomach and Bowel: There is no gross abnormal bowel wall thickening. No abscess collection. Peritoneum: Large amount of ascites fluid is noted in abdomen and pelvis. No gross free air. Ventral Wall: No significant ventral hernia. Abdominal Nodes: No retroperitoneal or mesenteric adenopathy by size criteria. Vessels: Aorta is normal in size. Markedly enlarged IVC is noted concerning for right heart failure. PELVIS: Pelvic Organs: Unremarkable. Bladder: No bladder wall thickening, accounting for underdistention. Pelvic Nodes: No enlarged lymph nodes. Miscellaneous: No inguinal hernias are seen. Generalized anasarca is seen. Bones: No aggressive osseous abnormality. IMPRESSION: 1. Large ascites fluid. No gross free air. 2. Small bilateral pleural effusion. Marked cardiomegaly, no pericardial effusion. Signs of right heart failure with generalized anasarca . 3. No bowel obstruction or abnormal bowel wall thickening. No gross abscess collection. Dictated by: Walt Cleary M.D. on 07/30/2024 at 20:56 Approved by: Walt Cleary M.D. on 07/30/2024 at 21:00
--- NOTE | 2024-07-30 19:37 | EKG_ITS ---
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
--- NOTE | 2024-07-30 19:38 | DI.RAD.S_ITS ---
PROCEDURE: XR CHEST 1V INDICATIONS: eval for PNA TECHNIQUE: One view of the chest was acquired. COMPARISON: [facility], CR, XR CHEST 1V, 07/07/2024, 9:32. FINDINGS: Surgical changes and devices: None. Lungs and pleura: There is pulmonary vascular congestion and mild pulmonary edema. No definite focal infiltrate. No pleural effusions or pneumothorax. Mediastinum: Mediastinal contours appear normal. Heart size is enlarged Bones and chest wall: No suspicious bony lesions. Overlying soft tissues appear unremarkable. IMPRESSION: Cardiomegaly and congestion with pulmonary edema concerning for CHF. No definite focal infiltrate. No significant pleural effusion or gross pneumothorax. Dictated by: Walt Cleary M.D. on 07/30/2024 at 20:37 Approved by: Walt Cleary M.D. on 07/30/2024 at 20:38
--- NOTE | 2024-07-30 19:38 | ED_ITS ---
HPI - General Adult General Chief complaint: Altered Mental Status Stated complaint: Abdominal pain Time Seen by Provider: 07/30/24 19:28 Source: EMS Mode of arrival: EMS Limitations: altered mental status History of Present Illness HPI narrative: Patient is a 73-year-old male who is brought to the emergency department from [facility] for evaluation of was initially reported a several days of decline in health status, distended abdomen, hypotension and shortness of breath. Upon EMS arrival they found the patient to be hypotensive with a systolic blood pressure in the 70s. Noticed that he had a distended abdomen. Was reporting short of breath although was not hypoxic. He was placed on oxygen for comfort by EMS. In the emergency department the patient is unable to provide any HPI. He was alert to person and place but he was not able to describe why he was here. He was able to state that he was not in any pain. He denied shortness of breath or chest pain or abdominal pain. Related Data Previous Rx's Medication Instructions Recorded apixaban 5 mg (74 tabs) tablets in See Rx Instructions PO .COMPLEX 07/07/24 a dose pack ([employer] DVT-PE Treat #74 ea 30D Start) cefdinir 300 mg capsule 300 mg PO Q12H #14 caps 07/07/24 Allergies Allergy/AdvReac Type Severity Reaction Status Date / Time No Known Drug Allergies Allergy Verified 07/07/24 09:21 Review of Systems Review of Systems ROS Unobtainable: Unobtainable due to mental condition Patient History Social History Smoking Status: Former smoker Smoking Status: Former smoker alcohol intake frequency: other Substance Use Type: does not use Exam Initial Vital Signs Initial Vital Signs: Vital Signs Temperature 97.3 F L 07/30/24 19:26 Pulse Rate 124 H 07/30/24 19:26 Respiratory Rate 26 H 07/30/24 19:26 Blood Pressure 127/89 07/30/24 19:26 Pulse Oximetry 93 07/30/24 19:26 Oxygen Delivery Method Nasal Cannula 07/30/24 19:26 Oxygen Flow Rate 4 07/30/24 19:26 Const General: No healthy appearing and ill appearing HENMT Head: normal to inspection and normocephalic Face and sinus: normal facial exam Resp Effort & Inspection: no cough and tachypneic Auscultation: crackles Cardio Rate: tachycardic Rhythm: regular rhythm GI Inspection: distended Palpation: soft, hernia (Umbilical hernia felt) and No rigid External: normal external exam Skin Other: Mottled skin Neuro General: patient alert, patient awake and moves all extremities Speech: speech normal Other: Oriented to person and place Extrem Other: Lower extremity edema, no gross abnormalities Procedures Central Line Placement Right IJ: Time Out Performed: Yes Patient Placed on Monitor/Pulse Ox: Yes MD Prep: gown and gloves Central Line Prep: Povidone-Iodine 1% Local Anesthetic: lidocaine 1% Amount of anesthesia used (mL): 5 Ultrasound Used for Placement: Yes Central Line Lumen Inserted: triple Post Procedure: sterile dressing applied and line stabilization device Post Procedure X-Ray: tip of catheter in good position and no pneumothorax seen Complications: none Additional Comments: This line eventually became dislodged Left IJ: Additional Comments: Attempted placement of left IJ unsuccessful. I was able to get blood return from the guide syringe however was unable to safely pass the guidewire after multiple attempts this procedure was abandoned Right Femoral: Patient Placed on Monitor/Pulse Ox: Yes MD Prep: gown and gloves Central Line Prep: Povidone-Iodine 1% Local Anesthetic: lidocaine 1% Amount of anesthesia used (mL): 5 Ultrasound Used for Placement: No Central Line Lumen Inserted: triple Post Procedure: sutured in place, good blood return, all ports aspirated, flushed, capped and sterile dressing applied Patient Tolerated Procedure: No complications Scores GCS [place] coma scale eye opening: To sound [place] coma scale verbal response: Confused [place] coma scale motor response: Obey commands [place] coma scale total score: 13 Course Orders Ordered: ED Orders 07/30/24 19:29 CT abdomen pelvis w con Stat CT head/brain wo con Stat 07/30/24 19:30 Complete Blood Count AUTO DIFF Stat Comprehensive Metabolic Panel Stat DIG [Digoxin] Stat Lactate (Lactic Acid) Stat Lipase Stat NT-proBNP (BNP-Adult 18+) Stat PTT Partial Thromboplastin [place] Stat Procalcitonin Stat Prothrombin Time INR Stat Troponin & CK Cardiac Panel Stat Type and Screen Stat EKG-12 Lead Stat 07/30/24 19:38 XR chest 1V Stat 07/30/24 20:20 Blood Culture Stat 07/30/24 20:25 Ictotest Urine Stat Urinalysis and Microscopic Stat Urine Culture Stat 07/30/24 20:44 Chest [XR chest 1V] Stat 07/30/24 21:40 Respiratory Panel (Film Array) Stat NOREPINEPHRINE BITARTRATE/D5W (Levophed) 4 mg in 250 mls @ 32.829 mls/hr IV TITRATE TAE; Protocol Last Admin: 07/30/24 23:45 Dose: 1.2 mcg/kg/min, 393.944 mls/hr Documented By: Titration: 07/30/24 23:37 Dose: Infused Documented By: Titration: 07/30/24 23:34 Dose: 1.2 mcg/kg/min, 393.944 mls/hr Documented By: Admin: 07/30/24 22:40 Dose: 0.8 mcg/kg/min, 262.629 mls/hr Documented By: Titration: 07/30/24 22:35 Dose: Infused Documented By: Admin: 07/30/24 21:37 Dose: 0.8 mcg/kg/min, 262.629 mls/hr Documented By: Titration: 07/30/24 21:35 Dose: Infused Documented By: Titration: 07/30/24 20:50 Dose: 0.8 mcg/kg/min, 262.629 mls/hr Documented By: Titration: 07/30/24 20:46 Dose: 0.7 mcg/kg/min, 229.8 mls/hr Documented By: Titration: 07/30/24 20:41 Dose: 0.6 mcg/kg/min, 196.972 mls/hr Documented By: Titration: 07/30/24 20:37 Dose: 0.5 mcg/kg/min, 164.143 mls/hr Documented By: Titration: 07/30/24 20:31 Dose: 0.3 mcg/kg/min, 98.486 mls/hr Documented By: Titration: 07/30/24 20:30 Dose: 0.2 mcg/kg/min, 65.657 mls/hr Documented By: Admin: 07/30/24 20:26 Dose: 0.1 mcg/kg/min, 32.829 mls/hr Documented By: KH Vasopressin 40 unit/ Sodium (Chloride) 102 mls @ 4.5 mls/hr IV CONT TAE Discontinued Medications Sodium Chloride (Normal Saline 0.9%) 1,000 mls @ 1,000 mls/hr IV BOLUS ONE Stop: 07/30/24 20:28 Last Infusion: 07/30/24 21:18 Dose: Infused Documented By: Admin: 07/30/24 20:25 Dose: 1,000 mls/hr Documented By: SARITHA Ceftriaxone Sodium 1,000 mg/ (Sodium Chloride) 100 mls @ 200 mls/hr IV NOW ONE Stop: 07/30/24 20:01 Last Infusion: 07/30/24 21:31 Dose: Infused Documented By: Admin: 07/30/24 20:43 Dose: 200 mls/hr Documented By: SARITHA Vancomycin HCl (Vancomycin) 1,000 mg in 200 mls @ 200 mls/hr IV NOW ONE Stop: 07/30/24 20:59 Last Infusion: 07/30/24 22:51 Dose: Infused Documented By: Admin: 07/30/24 21:46 Dose: 200 mls/hr Documented By: SARITHA Sodium Chloride (Normal Saline 0.9%) 1,000 mls @ 1,000 mls/hr IV BOLUS ONE Stop: 07/30/24 21:18 Last Infusion: 07/30/24 22:38 Dose: Infused Documented By: Infusion: 07/30/24 21:35 Dose: 1,000 mls/hr Documented By: Infusion: 07/30/24 20:55 Dose: 0 mls/hr Documented By: Admin: 07/30/24 20:33 Dose: 1,000 mls/hr Documented By: SARITHA Calcium Gluconate 4.65 meq/ (Sodium Chloride) 60 mls @ 180 mls/hr IV NOW ONE Stop: 07/30/24 20:50 Last Infusion: 07/30/24 21:44 Dose: Infused Documented By: Infusion: 07/30/24 21:44 Dose: 0 mls/hr Documented By: Infusion: 07/30/24 21:38 Dose: 180 mls/hr Documented By: Infusion: 07/30/24 20:50 Dose: 0 mls/hr Documented By: Admin: 07/30/24 20:42 Dose: 180 mls/hr Documented By: SARITHA Phytonadione 10 mg/ Sodium (Chloride) 101 mls @ 202 mls/hr IV NOW ONE Stop: 07/30/24 20:50 Last Infusion: 07/30/24 21:39 Dose: Infused Documented By: Admin: 07/30/24 20:56 Dose: 202 mls/hr Documented By: SARITHA Prothrombin Complex Concent ( Human) 2,000 unit/Miscellaneous 80 mls @ 630.31 mls/hr IV NOW ONE; Protocol Stop: 07/30/24 21:04 Last Infusion: 07/30/24 21:26 Dose: Infused Documented By: Admin: 07/30/24 21:13 Dose: 3 unit/kg/min, 630.31 mls/hr Documented By: SARITHA Sodium Chloride (Normal Saline 0.9%) 1,000 mls @ 500 mls/hr IV BOLUS ONE Stop: 07/30/24 22:58 Last Infusion: 07/30/24 23:20 Dose: Infused Documented By: Admin: 07/30/24 21:22 Dose: 500 mls/hr Documented By: SARITHA Vital Signs Vital signs: Vital Signs - 8 hr 07/30/24 19:26 07/30/24 19:29 07/30/24 19:30 Temperature 97.3 F L Pulse Rate 124 H 114 H 126 H Respiratory Rate 26 H 22 23 Blood Pressure 127/89 Pulse Oximetry 93 59 L Oxygen Delivery Method Nasal Cannula Oxygen Flow Rate 4 07/30/24 19:31 07/30/24 19:31 07/30/24 20:10 Temperature Pulse Rate 129 H 143 H Respiratory Rate 24 26 H Blood Pressure 127/89 Pulse Oximetry 91 93 Oxygen Delivery Method Oxygen Flow Rate 07/30/24 20:16 07/30/24 20:16 07/30/24 20:17 Temperature Pulse Rate 139 H 138 H Respiratory Rate 25 H 23 Blood Pressure 53/26 L Pulse Oximetry 83 L 90 L Oxygen Delivery Method Oxygen Flow Rate 07/30/24 20:17 07/30/24 20:23 07/30/24 20:23 Temperature Pulse Rate 142 H Respiratory Rate 24 Blood Pressure 55/24 L 58/29 L Pulse Oximetry 87 L Oxygen Delivery Method Oxygen Flow Rate 07/30/24 20:25 07/30/24 20:25 07/30/24 20:29 Temperature Pulse Rate 145 H Respiratory Rate 24 Blood Pressure 55/24 L 51/24 L Pulse Oximetry 92 Oxygen Delivery Method Oxygen Flow Rate 07/30/24 20:29 07/30/24 20:30 07/30/24 20:30 Temperature Pulse Rate 146 H 149 H Respiratory Rate 22 24 Blood Pressure 48/30 L Pulse Oximetry 84 L 84 L Oxygen Delivery Method Oxygen Flow Rate 07/30/24 20:33 07/30/24 20:33 07/30/24 20:35 Temperature Pulse Rate 149 H Respiratory Rate 24 Blood Pressure 50/30 L 49/28 L Pulse Oximetry 87 L Oxygen Delivery Method Nasal Cannula Oxygen Flow Rate 4 07/30/24 20:35 07/30/24 20:39 07/30/24 20:40 Temperature Pulse Rate 152 H 157 H Respiratory Rate 23 24 Blood Pressure 51/28 L Pulse Oximetry 90 L 89 L Oxygen Delivery Method Oxygen Flow Rate 07/30/24 20:40 07/30/24 20:45 07/30/24 20:45 Temperature Pulse Rate 158 H 165 H Respiratory Rate 24 25 H Blood Pressure 64/31 L Pulse Oximetry 90 L 85 L Oxygen Delivery Method Oxygen Flow Rate 07/30/24 20:50 07/30/24 20:50 07/30/24 21:00 Temperature Pulse Rate 168 H 0 L Respiratory Rate 26 H 27 H Blood Pressure 54/26 L Pulse Oximetry 92 100 Oxygen Delivery Method Oxygen Flow Rate 07/30/24 21:05 07/30/24 21:05 07/30/24 21:18 Temperature Pulse Rate 0 L 142 H Respiratory Rate 27 H 30 H Blood Pressure 125/94 H Pulse Oximetry 71 L Oxygen Delivery Method Oximask Oxygen Flow Rate 4 07/30/24 21:30 07/30/24 21:40 07/30/24 22:00 Temperature 95.9 F L 95.5 F L Pulse Rate 142 H 41 L Respiratory Rate 30 H Blood Pressure Pulse Oximetry 92 74 L Oxygen Delivery Method Oximask Oxygen Flow Rate 4 07/30/24 22:07 07/30/24 22:30 07/30/24 22:33 Temperature 95.5 F L 95.4 F L Pulse Rate 133 H 72 140 H Respiratory Rate 32 H 30 H Blood Pressure Pulse Oximetry 92 80 L 83 L Oxygen Delivery Method Oximask Oximask Oxygen Flow Rate 4 5 07/30/24 23:00 07/30/24 23:08 07/30/24 23:42 Temperature 95.4 F L 95.2 F L 94.8 F L Pulse Rate 72 176 H 130 H Respiratory Rate 33 H 21 Blood Pressure 86/57 L 63/51 L Pulse Oximetry 85 L Oxygen Delivery Method Oximask Oxygen Flow Rate 4 07/30/24 23:50 Temperature Pulse Rate 170 H Respiratory Rate Blood Pressure 47/30 L Pulse Oximetry Oxygen Delivery Method Oxygen Flow Rate Medical Decision Making Medical Records Medical records reviewed: Yes I reviewed the patient's medical records. Lab Data Lab results reviewed: Yes I reviewed the patient's lab results. 07/30/24 19:30 07/30/24 19:30 Labs: Lab Results 07/30/24 07/30/24 07/30/24 Range/Units 19:30 20:25 21:40 WBC 7.5 (4.5-11.0) X10^3/uL RBC 3.86 L (4.5-5.9) X10^6/uL Hgb 13.1 L (13.5-17.5) g/dL Hct 39.3 L (41-53) % MCV 101.7 H (80-100) fL MCH 33.8 (26-34) PG MCHC 33.3 (30-36) % RDW 18.3 H (11.6-14.8) % Plt Count 143 L (150-400) X10^3/uL Neut % (Auto) 87.1 H (50-75) % Lymph % (Auto) 3.5 L (25-40) % [place] % (Auto) 8.5 (3-14) % Eos % (Auto) 0.1 L (2-4) % Baso % (Auto) 0.8 (0-2) % Neut # (Auto) 6500 (1132-4734) /uL Lymph # (Auto) 300 L (7423-1762) /uL [place] # (Auto) 600 (0-900) /uL Eos # (Auto) 0 (0-450) /uL Baso # (Auto) 100 (0-100) /uL PT 107.3 H (9.4-12.5) SECONDS INR 9.1 H* (0.9-1.3) APTT 46 H (25.1-36.5) SECONDS Sodium 125 L (137-145) mmol/L Potassium 6.3 H* (3.4-5.1) mmol/L Chloride 93 L (98-107) mmol/L Carbon Dioxide 12 L (22-32) mmol/L BUN 77 H (9-20) mg/dL Creatinine 3.07 H (0.66-1.25) mg/dL Estimated GFR 21 L (>60) mL/min BUN/Creatinine Ratio 25.1 H (6-22) Glucose 85 (80-110) mg/dL Lactate 4.7 H* 5.9 H* (0.7-2.1) mmol/L Calcium 8.6 (8.4-10.2) mg/dL Total Bilirubin 12.4 H (0.2-1.3) mg/dL AST 738 H (17-59) IU/L ALT 231 H (<50) IU/L Alkaline Phosphatase 113 (38-126) U/L Total Creatine Kinase 3181 H (55-170) U/L Troponin I 0.247 H* (0.01-0.034) ng/mL NT-Pro-B Natriuret Pep 76088 H (<125) pg/mL Total Protein 6.5 (6.3-8.2) g/dL Albumin 3.6 (3.5-5.0) g/dL Globulin 2.9 (1.7-4.1) g/dL Albumin/Globulin Ratio 1.2 (1.0-2.8) Lipase 184 (23-300) U/L Procalcitonin 5.17 H (<0.5) ng/mL Urine Color [place] Urine Appearance Sl cloudy Urine pH 5.0 (4.5-8.0) Ur Specific [place] >=1.030 H (1.000-1.035) Urine Protein 2+ H (Negative) Urine Glucose (UA) Negative (Negative) g/dL Urine Ketones Negative (NEGATIVE) Urine Occult Blood Trace-intact (Negative) Urine Nitrate Negative (Negative) Urine Bilirubin 3+ H (NEGATIVE) Ur Bilirubin Confirm Positive H (Negative) Urine Urobilinogen >=8.0 (0.2) E.U./dL Ur Leukocyte Esterase Negative (NEGATIVE) Urine RBC 1-5/hpf (0-5/HPF) Urine WBC 1-5/hpf (0-5/HPF) Ur Squamous Epith Cells 0-1 /hpf (0-5/HPF) Calcium Oxalate Crystal Occasional H Other Crystals Bilirubin Urine Bacteria Few (2-10) H (None) Hyaline Casts 0-1/lpf (None) Urine Mucus 1+ H (Negative) Urine Sperm Many Ur Culture Indicated? Cult not indicated Vol Urine Centrifuged 10ml (spun) Digoxin 0.4 L (0.8-2.0) ng/mL Chlamy pneumoniae PCR Not detected (Not Detect) Adenovirus (PCR) Not detected (Not Detect) B.parapertussis DNA PCR Not detected (Not Detecte) Coronavirus OC43 (PCR) Not detected (Not Detect) Coronavirus HKU1 (PCR) Not detected (Not Detect) Coronavirus 229E (PCR) Not detected (Not Detect) SARS-CoV-2 (PCR) Not detected (Not Detecte) Coronavirus NL63 (PCR) Not detected (Not Detect) Human Metapneumovir PCR Not detected (Not Detect) Influenza Type A (PCR) Not detected (Not Detect) Influenza Type B (PCR) Not detected (Not Detect) M. pneumoniae (PCR) Not detected (Not Detect) Parainfluenza 1 (PCR) Not detected (Not Detect) Parainfluenza 2 (PCR) Not detected (Not Detect) Parainfluenza 3 (PCR) Not detected (Not Detect) Parainfluenza 4 (PCR) Not detected (Not Detect) RSV (PCR) Not detected (Not Detect) Entero/Rhino (PCR) Not detected (Not Detect) Blood Type A Positive Antibody Screen Negative Imaging Data CT scan - abdomen/pelvis: Radiologist's Impression: PROCEDURE: CT ABDOMEN PELVIS W CON INDICATIONS: Distended abdomen TECHNIQUE: After the administration of intravenous contrast, axial sections acquired from the lung bases to the pubic symphysis. Coronal and sagittal reformats were performed. For radiation dose reduction, the following was used: automated exposure control, adjustment of mA and/or kV according to patient size. COMPARISON: [facility], CT, CT ABDOMEN PELVIS W CON, 07/04/2024, 11:35. FINDINGS: Image quality: Diagnostic. Lower Chest: Small bilateral pleural effusion and bibasilar dependent atelectasis is seen. Heart size is enlarged, no pericardial effusion. ABDOMEN: Liver: No solid mass. Lobulated liver contour is noted. Gallbladder: No radiopaque gallstones or wall thickening. Biliary ducts: No biliary dilation. Pancreas: No ductal dilation. Spleen: Size is within normal limits. Adrenal Glands: No adrenal nodules. Kidneys and Ureters: No hydronephrosis. No solid mass. No complex renal cystic lesion which requires follow up. Stomach and Bowel: There is no gross abnormal bowel wall thickening. No abscess collection. Peritoneum: Large amount of ascites fluid is noted in abdomen and pelvis. No gross free air. Ventral Wall: No significant ventral hernia. Abdominal Nodes: No retroperitoneal or mesenteric adenopathy by size criteria. Vessels: Aorta is normal in size. Markedly enlarged IVC is noted concerning for right heart failure. PELVIS: Pelvic Organs: Unremarkable. Bladder: No bladder wall thickening, accounting for underdistention. Pelvic Nodes: No enlarged lymph nodes. Miscellaneous: No inguinal hernias are seen. Generalized anasarca is seen. Bones: No aggressive osseous abnormality. IMPRESSION: 1. Large ascites fluid. No gross free air. 2. Small bilateral pleural effusion. Marked cardiomegaly, no pericardial effusion. Signs of right heart failure with generalized anasarca . 3. No bowel obstruction or abnormal bowel wall thickening. No gross abscess collection. CT scan - head: Radiologist's Impression: ROCEDURE: CT HEAD/BRAIN WO CON INDICATIONS: Acute confusion TECHNIQUE: Noncontrast 4.5 mm thick angled axial sections acquired from the foramen magnum to the vertex, with coronal and sagittal reformats. For radiation dose reduction, the following was used: automated exposure control, adjustment of mA and/or kV according to patient size. COMPARISON: None. FINDINGS: Image quality: Diagnostic. Patient motion is noted. CSF spaces: Basal cisterns are patent. No extra-axial fluid collections. The ventricles are symmetric in size and shape. Brain: No intracranial bleeds or masses. There is cerebral volume loss for age, with resultant ventricular and sulcal prominence. There are periventricular and deep white matter chronic small vessel ischemic changes. There is intracranial internal carotid artery atherosclerosis. Skull and face: Calvarium and visualized facial bones appear intact, without suspicious lesions. Sinuses: Visualized sinuses and mastoids are clear. IMPRESSION: 1. No acute intracranial pathology. 2. Age related volume loss and extensive white matter chronic small vessel ischemic changes. Chest x-ray: Radiologist's Impression: PROCEDURE: XR CHEST 1V INDICATIONS: eval for PNA TECHNIQUE: One view of the chest was acquired. COMPARISON: [facility], , XR CHEST 1V, 07/07/2024, 9:32. FINDINGS: Surgical changes and devices: None. Lungs and pleura: There is pulmonary vascular congestion and mild pulmonary edema. No definite focal infiltrate. No pleural effusions or pneumothorax. Mediastinum: Mediastinal contours appear normal. Heart size is enlarged Bones and chest wall: No suspicious bony lesions. Overlying soft tissues appear unremarkable. IMPRESSION: Cardiomegaly and congestion with pulmonary edema concerning for CHF. No definite focal infiltrate. No significant pleural effusion or gross pneumothorax. repeat CXR: My Impression: PROCEDURE: XR CHEST 1V INDICATIONS: post line placement TECHNIQUE: One view of the chest was acquired. COMPARISON: [facility], CT, CT ABDOMEN PELVIS W CON, 07/30/2024, 19:36. [facility], CR, XR CHEST 1V, 07/30/2024, 19:37. [facility], CR, XR CHEST 1V, 07/07/2024, 9:32. FINDINGS: Surgical changes and devices: Interval placement of central venous catheter with the distal tip at the cavoatrial junction. Lungs and pleura: Mild central perihilar opacification. No pleural effusions or pneumothorax. Mediastinum: Mediastinal contours appear normal. Four-chamber cardiomegaly. Bones and chest wall: No suspicious bony lesions. Overlying soft tissues appear unremarkable. IMPRESSION: Central venous catheter tip at the cavoatrial junction. Mild pulmonary edema and cardiomegaly. ECG Data Attestation: I personally reviewed and interpreted this ECG as follows: Interpretation: Sinus rhythm Ventricular rate of 133 Tachycardic QRS [address] T wave changes MDM Narrative Medical decision making narrative: I have very limited history of the patient. Most of his history came from an emergency department note from about 3 weeks ago. Apparently the patient has a history of AFib. Prior to that visit several weeks ago it did not appear that he was on anticoagulation. He was found during that visit that he did have pulmonary emboli. He was started on Eliquis. Patient is on digoxin. Will also report that he has a history of cirrhosis. Unsure of the etiology of this cirrhosis. About 1 month ago he did have a large volume paracentesis. Unsure if he was had anything since then. There is nothing in our EMR about this. From what I can see he does have a history of heart failure. Had an echocardiogram during his last visit which showed a ejection fraction of less than 20%. He was on Lasix. During that ED department do not there was discussion about hospice. I see no notes in the EMR regarding this. Patient is unsure about the status of hospice. I do not feel that the patient has capacity to make decisions. I do not have advanced directives at bedside. We contacted the facility where he was staying. They stated that they have no record that the patient is on hospice. Attempted to contact the only point of care that was in the nursing facility notes. This patient is Lindsay Salinas. Phone number [phone]. I left a message at this number for her to return call. I did have a brief discussion with the patient regarding code status. He stated that he did want CPR. Once again I am unsure if he completely understands this conversation. Patient remained persistently hypotensive. Right IJ was placed. He was started on Levophed. We had a very difficult time getting blood pressures both manually and through the monitor. He did have good peripheral pulses and good capillary refill despite some mottling of his skin. A left wrist arterial line was placed by anesthesia. Patient does have an elevated INR. He was not on Coumadin. He was on Eliquis. He was oozing from IV poke sites. Patient was given vitamin K. He was also given Kcentra. During his time he had continued oozing from the right IJ. This line eventually was dislodged. A left IJ was attempted however I did get good blood return from the introducer needle however was unable to pass the guidewire safely. Eventually a right femoral line was placed without complication. I chose the right femoral line so that we had a compressible site if needed. His mental status has not changed. He does not have a leukocytosis but did have an elevated lactate. Blood cultures were obtained. He was given Rocephin and vancomycin. Creatinine is elevated. Potassium is greater than 6. He has what appears to be a wide QRS on the EKG. Calcium was administered. His BNP is significantly above normal. He does have lower extremity edema. He was not been hypoxic. Given his hypotension I will hold on diuresis for now. A temperature sensing John was placed. I did discuss the case with Dr. Ferguson rainbow trout farm manager at the [facility] who accepts the patient in transfer. Patient was currently stable for transport. Airlift arrived. Patient has been accepted at the [facility]. I was called to bedside by nursing staff for an acute decrease in blood pressure. Ordered vasopressin. A few minutes later patient had a loss of pulses. CPR was started. Epinephrine was administered. At the 1st pulse check patient had a wide complex bradycardia. Bedside ultrasound showed no cardiac activity. No pulses were felt. CPR was once again started. Another mg of epinephrine was administered. At the next pulse check once again patient had no pulses. Bedside ultrasound showed no cardiac activity. PA on the monitor. Given his history, his significant comorbidities and according to the prior note the discussion that the patient is going to have a hospice consult with the beginning of next week resuscitative efforts were stopped. Patient was pronounced at 0005 hours 07/31/2024 Critical Care Time Critical Care Time Critical Care Time: Yes Total Critical Care Time: 65 Attestation: The high probability of a clinically significant, sudden or life threatening deterioration of the [cardiovascular, renal, respiratory, neurologic] system(s) required my full and direct attention, intervention and personal management. The aggregate critical care time was [65] minutes. This time is in addition to time spent performing reported procedures but includes the following: [x] Data Review and interpretation x Patient assessment and monitoring of vital signs [x] Documentation []x Medication orders and management Discharge Plan Departure Patient Disposition: Clinical Impression: Acute renal failure, Altered mental status, Acute hyperkalemia, Cirrhosis, Ascites, Hypotension, Elevated troponin, Pulmonary edema
[2024-07-30 19:40] LABS: Add Manual Diff / Slide Review NO; Basophils Absolute Auto 100 /uL (0-100); Basophils Percent Auto 0.8 % (0-2); Eosinophils Absolute Auto 0 /uL (0-450); Eosinophils Percent Auto 0.1 % (2-4); Hematocrit 39.3 % (41-53); Hemoglobin 13.1 g/dL (13.5-17.5); Lymphocytes Absolute Auto 300 /uL (1100-4500); Lymphocytes Percent Auto 3.5 % (25-40); Mean Corpuscular HGB Conc 33.3 % (30-36); Mean Corpuscular Hemoglobin 33.8 PG (26-34); Mean Corpuscular Volume 101.7 fL (80-100); Monocytes Absolute Auto 600 /uL (0-900); Monocytes Percent Auto 8.5 % (3-14); Neutrophils Absolute Auto 6500 /uL (1500-7000); Neutrophils Percent Auto 87.1 % (50-75); Platelet Count 143 X10^3/uL (150-400); Red Blood Cell Count 3.86 X10^6/uL (4.5-5.9); Red Cell Distribution Width 18.3 % (11.6-14.8); White Blood Cell Count 7.5 X10^3/uL (4.5-11.0)
--- NOTE | 2024-07-30 19:45 | PC.NURSE ---
to ct per stretcher
--- NOTE | 2024-07-30 19:47 | PC.NURSE ---
see triage note, pt attempts to answer questions, but rambles with unrelated answers, skin slightly jaundiced with abdomen distended
[2024-07-30 19:52] LABS: PTT Partial Thromboplastin Tim 46 SECONDS (25.1-36.5)
[2024-07-30 19:56] LABS: Alanine Aminotransferase 231 IU/L (<50); Albumin 3.6 g/dL (3.5-5.0); Albumin Globulin Ratio 1.2 (1.0-2.8); Alkaline Phosphatase 113 U/L (38-126); Aspartate Aminotransferase 738 IU/L (17-59); BUN Creatinine Ratio 25.1 (6-22); Bilirubin Total 12.4 mg/dL (0.2-1.3); Blood Urea Nitrogen 77 mg/dL (9-20); Calcium 8.6 mg/dL (8.4-10.2); Carbon Dioxide 12 mmol/L (22-32); Chloride 93 mmol/L (98-107); Estimated Glomerular Filt Rate 21 mL/min (>60); Globulin 2.9 g/dL (1.7-4.1); Glucose 85 mg/dL (80-110); HEMOLYSIS < 15 (0-50); Lipase 184 U/L (23-300); Prothrombin Time 107.3 SECONDS (9.4-12.5); Sodium 125 mmol/L (137-145); Total Protein 6.5 g/dL (6.3-8.2)
[2024-07-30 19:58] LABS: INR 9.1 (0.9-1.3)
[2024-07-30 20:00] LABS: Lactate (Lactic Acid) 4.7 mmol/L (0.7-2.1)
[2024-07-30 20:01] LABS: Potassium 6.3 mmol/L (3.4-5.1)
[2024-07-30 20:02] LABS: Creatine Kinase 3181 U/L (55-170)
[2024-07-30 20:06] LABS: Digoxin 0.4 ng/mL (0.8-2.0)
[2024-07-30 20:10] LABS: Troponin I 0.247 ng/mL (0.01-0.034)
[2024-07-30 20:21] LABS: Procalcitonin 5.17 ng/mL (<0.5)
[2024-07-30] MEDS: SODIUM CHLORIDE 0.9% 1,000 ML 1000 ML IV ×2 (20:25→20:33)
[2024-07-30] MEDS: NOREPINEPHRINE BITARTRATE/D5W 4 MG/250 ML PLAST..BAG 32.829 MG IV (20:26)
[2024-07-30 20:29] LABS: NT-proBNP (BNP-Adult 18+) 62300 pg/mL (<125)
[2024-07-30 20:33] LABS: Appearance Urine UA SL CLOUDY; Bilirubin Urine UA 3+ (NEGATIVE); Leukocyte Esterase Urine UA NEGATIVE (NEGATIVE); Occult Blood Urine UA TRACE-INTACT (Negative); Protein Urine UA 2+ (Negative); Specific Gravity Urine UA >=1.030 (1.000-1.035); Urobilinogen Urine UA >=8.0 E.U./dL (0.2)
[2024-07-30 20:34] LABS: Color Urine UA Amber
--- NOTE | 2024-07-30 20:38 | PC.NURSE ---
Dr Cerna in to place central line
[2024-07-30 20:40] LABS: Glucose Urine UA NEGATIVE (Negative); Ketones Urine UA NEGATIVE (NEGATIVE); Nitrite Urine UA NEGATIVE (Negative)
[2024-07-30] MEDS: CALCIUM GLUCONATE 4.65 MEQ in SODIUM CHLORIDE 0.9% 50 ML 180 MEQ IV (20:42)
[2024-07-30 20:43] LABS: Ictotest Urine Positive (Negative); Urine Volume 10mL (spun)
[2024-07-30] MEDS: cefTRIAXone 1,000 MG in SODIUM CHLORIDE 0.9% 100 ML 200 MG IV (20:43)
[2024-07-30 20:44] LABS: Bacteria Urine Few (2-10); Calcium Oxalate Crystals Urine Occasional; Hyaline Casts Urine 0-1/LPF; Mucus Urine 1+ (Negative); Other Crystals Urine Bilirubin; RBC Urine 1-5/HPF (0-5/HPF); Squamous Epithelial Cell Urine 0-1 /HPF (0-5/HPF); WBC Urine 1-5/HPF (0-5/HPF)
--- NOTE | 2024-07-30 20:44 | DI.RAD.S_ITS ---
PROCEDURE: XR CHEST 1V INDICATIONS: post line placement TECHNIQUE: One view of the chest was acquired. COMPARISON: [facility], CT, CT ABDOMEN PELVIS W CON, 07/30/2024, 19:36. [facility], CR, XR CHEST 1V, 07/30/2024, 19:37. [facility], CR, XR CHEST 1V, 07/07/2024, 9:32. FINDINGS: Surgical changes and devices: Interval placement of central venous catheter with the distal tip at the cavoatrial junction. Lungs and pleura: Mild central perihilar opacification. No pleural effusions or pneumothorax. Mediastinum: Mediastinal contours appear normal. Four-chamber cardiomegaly. Bones and chest wall: No suspicious bony lesions. Overlying soft tissues appear unremarkable. IMPRESSION: Central venous catheter tip at the cavoatrial junction. Mild pulmonary edema and cardiomegaly. Dictated by: Skyler Shelley M.D. on 07/30/2024 at 20:56 Approved by: Skyler Shelley M.D. on 07/30/2024 at 20:58
[2024-07-30 20:45] LABS: Culture Indicated Urine Cult Not Indicated; Sperm Urine MANY
--- NOTE | 2024-07-30 20:51 | PC.NURSE ---
pt bleeding from central line insertion site, pressure being held, pt restless, continues confused
[2024-07-30] MEDS: PHYTONADIONE (VIT K1) 10 MG in SODIUM CHLORIDE 0.9% 100 ML 202 MG IV (20:56)
--- NOTE | 2024-07-30 20:58 | PC.NURSE ---
pt extremly restless, confused, forgetful, central line continues to bleed crash cart at bedside, pads placed on pt
--- NOTE | 2024-07-30 21:02 | PC.NURSE ---
skin mottled and cool to touch, pt rolled to the left side,d\t pt stating he c/o not being able to breath states it helps him
[2024-07-30 21:11] LABS: Reflexed Lactate in 2 Hours Y
[2024-07-30] MEDS: PROTHROMBIN CPLX(PCC)4FACT 2,000 UNIT in ISOOSMOTIC VEHICLE 0 ML 630.31 UNIT IV (21:13)
--- NOTE | 2024-07-30 21:15 | PC.NURSE ---
pt lying on left side, moaning, skin mottled and cool, restless,
[2024-07-30] MEDS: SODIUM CHLORIDE 0.9% 1,000 ML 500 ML IV (21:22)
--- NOTE | 2024-07-30 21:22 | PC.NURSE ---
unable to obtain a manual BP or automatic BP, Femoral pulse palpable, Dr Cerna notified and in room to evaluate pt
[2024-07-30] MEDS: NOREPINEPHRINE BITARTRATE/D5W 4 MG/250 ML PLAST..BAG 262.629 MG IV ×2 (21:37→22:40)
[2024-07-30] MEDS: VANCOMYCIN 1,000 MG/200 ML PIGGYBACK 200 MG IV (21:46)
[2024-07-30 22:04] LABS: Lactate 2HR (Lactic Acid Rflx) 5.9 mmol/L (0.7-2.1)
--- NOTE | 2024-07-30 22:10 | PC.NURSE ---
anethesia in room to place a-line, no change in pt's condition, pt continues restless, rambling confused, mottled, cool to touch, warm blankets continue to be placed on pt
[2024-07-30 22:39] LABS: Adenovirus Not Detected (Not Detect); B. parapertussis Not Detected (Not Detecte); Bordetella pertussis Not Detected (Not Detect); Chlamydophila pneumoniae Not Detected (Not Detect); Coronavirus 229E Not Detected (Not Detect); Coronavirus HKU1 Not Detected (Not Detect); Coronavirus NL 63 Not Detected (Not Detect); Coronavirus OC43 Not Detected (Not Detect); Human Metapneumovirus Not Detected (Not Detect); Human Rhinovirus/Enterovirus Not Detected (Not Detect); Influenza A Not Detected (Not Detect); Influenza B Not Detected (Not Detect); Mycoplasma pneumoniae Not Detected (Not Detect); Parainfluenza Virus 1 Not Detected (Not Detect); Parainfluenza Virus 2 Not Detected (Not Detect); Parainfluenza Virus 3 Not Detected (Not Detect); Parainfluenza Virus 4 Not Detected (Not Detect); Respiratory Syncytial Virus Not Detected (Not Detect); SARS- CoV-2 Not Detected (Not Detecte)
--- NOTE | 2024-07-30 22:46 | PC.NURSE ---
arterial line placed per anesthesia, leveled and zeroed
--- NOTE | 2024-07-30 22:51 | PM.AN.INVM ---
Invasive Monitor Note Procedure Procedure: Arterial Catheter Insertion Start Time: 22:25 Stop Time: 22:49 Indication: Medical Management Timeout: :25 Barrier Precautions Utilized: Hand Hygiene, 2% Chlorhexidine Cutaneous Antisepsis, Sterile Gloves and Maintenance of Sterile Field Vessel Utilized: Radial Artery: Left Lines Catheters Utilized: 22 G Arrow Arterial Catheter Insertion Site Care: Sterile Occlusive Dressing Applied Ultrasound Ultrasound Guidance Utilized: Yes Ultrasound was used to identify the vessel. Assessed vessel was patent.: Radial Artery Ultrasound was used to visualize vascular needle entry into the: Radial Artery Limited exam reveals anatomically normal vessel with no apparent abnormal findings.: Yes Permanent ultrasound image obtained and interpretation documented.: No Complications Complications: none
--- NOTE | 2024-07-30 22:53 | PC.NURSE ---
Dr Cerna in to place triple lumen in left internal jugular
--- NOTE | 2024-07-30 23:30 | PC.NURSE ---
Valeria spencer placed on pt
--- NOTE | 2024-07-30 23:41 | PC.NURSE ---
attempted to call report without success
[2024-07-30] MEDS: NOREPINEPHRINE BITARTRATE/D5W 4 MG/250 ML PLAST..BAG 393.944 MG IV (23:45)
--- NOTE | 2024-07-30 23:50 | PC.NURSE ---
[facility] here to transport pt.
[2024-07-30] MEDS: EPINEPHrine 1 MG/10 ML SYRINGE IV (23:59)
[2024-07-31] MEDS: EPINEPHrine 1 MG/ML IV (00:03)
--- NOTE | 2024-07-31 00:07 | PC.NURSE ---
2357-pt started with guppy breathing, became unresponsive, with no pulse CPR started and code called. 235- 1 mg epinephrine given, pt being bagged with ambu bag per RT 0002-CPR stopped doppler per Dr Cerna with no cardiac activity noted, no pulses noted, CPR restarted, 1 mg epinephrine given IVP 0004-CPR stopped doppler per Dr Cerna with no cardiac activity noted, no pulses noted, 0005Code called
--- NOTE | 2024-07-31 01:51 | PC.NURSE ---
Pt passed at 0005, Called pharmacy clinical coordinator at 0015, possible to eye and tissue donation case # [id number], called messenger office, no autopsy at this time [place] number [phone]. talked to sister, nacho, thought home was already set up through [facility] and if not to call [facility] home. After multiple calls to [facility] living, no home was set up, called Miguel's and confirmed destination with sister. Removed all iv's, art line, hensley and central line before discharge. pt left facility with lara self and 1 yellow ring with green stone.
== END 2024-07-31 01:57 | disposition expired ==
PROVIDERS: Emergency Provider Emergency Medicine
DX: N17.9 Acute kidney failure, unspecified (principal); J81.1 Chronic pulmonary edema; K74.60 Unspecified cirrhosis of liver; R18.8 Other ascites; E87.5 Hyperkalemia; I95.9 Hypotension, unspecified; R79.89 Other specified abnormal findings of blood chemistry; R00.0 Tachycardia, unspecified; I48.91 Unspecified atrial fibrillation; Z79.01 Long term (current) use of anticoagulants; I51.7 Cardiomegaly
CPT/HCPCS: 36415; 36569; 70450; 71045; 74177; 80053; 80162; 81001; 82550; 83605; 83690; 83880; 84145; 84484; 85025; 85610; 85730; 86850; 86900; 86901; 87040; 87077; 87086; 87147; 87633; 92950; 93005; 96365; 96366; 96368; 96375; 99285; 99291; 99292; J0171; J0612; J0696; J3430; J7168; Q9967